=== PATIENT | female | born 1950 | race Two or more races ===

== ENCOUNTER 2020-04-07 06:47 | Outpatient (REF) | payer MEDICARE, SELFPAY | END 2020-04-07 06:48 | disposition home or self-care (01) | LOC: HO.LAB 06:47 | PROVIDERS: Visit Provider Internal Medicine | DX: Z20.822 Contact with and (suspected) exposure to COVID-19 (principal) | CPT/HCPCS: 36415; C9803; U0003; U0005 ==

== ENCOUNTER 2020-04-18 21:00 | Emergency (ER) | payer MEDICARE, SELFPAY ==
[2020-04-18] VITALS (7 sets, daily range): BP systolic 158–201; BP diastolic 89–118; PULSE 108–120; RESP 17–18; TEMP 36.8; O2SAT 94–99; BMI 31.3
--- NOTE | ~2020-04-18 | XR_ITS ---
EXAMINATION: PORTABLE CHEST 1 VIEW CLINICAL INFORMATION: chest pain . COMPARISON: 07/23/2018. TECHNIQUE: Portable frontal view of the chest was obtained. FINDINGS: The lungs are well expanded. Chronic appearing reticular markings but no superimposed focal infiltrate, effusion, edema, or pneumothorax. Cardiac and mediastinal silhouettes are within normal limits for technique. No acute bony abnormality seen. XR/XR chest 1V IMPRESSION: No evidence of acute disease compared to 07/23/2018.
--- NOTE | 2020-04-18 21:06 | ECG_ITS ---
Test Reason : CP Blood Pressure : / mmHG Vent. Rate : 124 BPM Atrial Rate : 144 BPM P-R Int : 000 ms QRS Dur : 076 ms QT Int : 266 ms P-R-T Axes : 000 000 -03 degrees QTc Int : 382 ms Atrial fibrillation with rapid ventricular response Minimal voltage criteria for LVH, may be normal variant Nonspecific ST abnormality Abnormal ECG When compared with ECG of 23-JUL-2018 19:47, Atrial fibrillation has replaced Sinus rhythm Vent. rate has increased BY 43 BPM Referred By: Chelita Schaffer Electronically Signed By:STEVEN RODRIGUEZ MD
--- NOTE | 2020-04-18 21:24 | ED.CHESTPAIN ---
HPI - Chest Pain General Chief Complaint: Chest Pain Stated Complaint: chest pain, covid exposure Time Seen by Provider: 04/18/20 21:07 Source: patient Mode of arrival: ambulatory History of Present Illness HPI narrative: This is a 70-year-old female with history of hypertension who presents with 2 hours of chest tightness/squeezing, substernal, that started approximately 2 hours ago, and is not associated with radiation/shortness of breath/nausea/dizziness, but patient does describe a mild headache. Of note, her family with whom she lives has been diagnosed with COVID-19. Otherwise, patient denies any GI symptoms or symptoms. Related Data Previous Rx's Medication Instructions Recorded metoprolol succinate 50 mg PO DAILY 30 Days #30 tab 04/19/20 rivaroxaban [Xarelto] 20 mg PO DAILY 30 Days #30 tab 04/19/20 Allergies Allergy/AdvReac Type Severity Reaction Status Date / Time amoxicillin [AMOXICILLIN] Allergy Intermediate RASH Verified 04/18/20 21:12 egg [Egg] Allergy Mild SWELLING Verified 04/18/20 21:12 OF FACE, ITCHY eggplant [EGGPLANT] Allergy Mild PUFFY Verified 04/18/20 21:12 FACE, ITCHY milk [MILK] Allergy Mild SWELLING Verified 04/18/20 21:12 OF FACE, ITCHY tomato [Tomato] Allergy Mild SWELLING Verified 04/18/20 21:12 avocado [AVOCADO] Allergy Unknown SWEELING, Verified 04/18/20 21:12 ITCHY nut - unspecified [nut] Allergy Unknown SWELLING Verified 04/18/20 21:12 OF FACE,ITCHY Seafood Allergy Unknown SWELLING Uncoded 11/22/19 15:10 Review of Systems Review of Systems: Pertinent positives and negatives as stated in HPI 10 point review of systems otherwise negative. PMFSH Past Medical History Source: nursing notes reviewed Medical History Hypertension Social History Social History Advance Directives: No Advance Directives Information Provided: No Physical Exam Vital Signs: Vital Signs: Last Vital Signs Temp 98.2 F 04/18/20 21:13 Pulse 111 H 04/19/20 01:10 Resp 16 04/19/20 01:08 BP 167/97 H 04/19/20 01:10 Pulse Ox 96 04/19/20 01:08 Body Mass Index 31.3 VITAL SIGNS: Reviewed. GENERAL: Well developed, well nourished, in no acute distress. HEAD: Normocephalic/atraumatic, EYES: PERRLA, EOMI EARS: Ext canals without abnormality NOSE: Nares patent bilateral OROPHARYNX: no oral lesions noted, posterior pharynx clear NECK: Supple, no adenopathy LUNGS: Normal breath sounds. No adventitious sounds or accessory muscle use. SpO2<94> CARDIOVASCULAR: Regular rate and rhythm without noted murmurs, no JVD or lower extremity edema. ABDOMEN: Soft, non-tender, non-distended with bowel sounds. NEUROLOGIC: Alert and oriented x 4. Course Course Course Narrative: This is a 70-year-old female with history and clinical presentation of hypertension that is associated with chest tightness and EKG findings consistent with new atrial fibrillation. -aspirin, labs, EKG, chest x-ray, D-dimer, COVID testing, UA, Lopressor 2.5 mg Review of all investigations that acute findings to explain patient's new onset atrial fibrillation. D-dimer was negative and patient remained in atrial fibrillation despite receiving a total of 10 mg of Lopressor IV, however her blood pressure did respond and her heart rate did decrease to 90s-low 100s. On re-evaluation patient endorses that her discomfort has significantly improved. CHADS-Vasc:3. This case was discussed with Cardiology, Dr Dahl, who recommends increasing her lopressor to 50mg daily, starting Xarelto, and calling office on Tuesday for appointment. Patient was informed of all plans and results. MDM - Chest Pain Lab Data Result diagrams: 04/18/20 21:33 04/18/20 21:33 Labs: Lab Results 04/18/20 04/18/20 04/18/20 Range/Units 21:33 21:33 21:33 WBC 9.4 (4.8-10.8) X10*3/uL RBC 4.78 (4.20-5.50) X10*6/uL Hgb 13.2 (12.0-16.0) g/dl Hct 40.6 (37-47) % MCV 84.9 (80-98) fL MCH 27.6 (27.0-33.0) pg MCHC 32.5 (31.0-35.0) g/dl RDW 13.5 (11.0-16.0) % Plt Count 285 (160-400) X10*3/uL MPV 9.5 (9.4-12.3) fL Immature Gran % (Auto) 0.2 (0.0-0.4) % Neut % (Auto) 73.7 H (45-73) % Lymph % (Auto) 20.3 (20-40) % [place]cl[place] % (Auto) 4.7 (2-11) % Eos % (Auto) 0.7 (0-4) % Baso % (Auto) 0.4 (0-2) % Lymph # (Auto) 1.9 (1.2-4.9) X10*3/uL [place]cl[place] # (Auto) 0.4 (0.1-1.2) X10*3/uL Eos # (Auto) 0.1 (0.0-0.4) X10*3/uL Baso # (Auto) 0.0 (0.0-0.2) X10*3/uL Abs Immat Gran (auto) 0.02 (0.00-0.03) X10*3/uL Absolute Neuts (auto) 7.0 (2.0-8.3) X10*3/uL Absolute Nucleated RBC 0.000 (0.0-0.012) X10*3/uL Nucleated RBC % (auto) 0.0 (0.0-0.2) /100WBC D-Dimer NG/ML Hold Blue Top SEE NOTE Sodium 141 (135-145) mmol/L Potassium 4.1 (3.3-5.1) mmol/L Chloride 105 (96-108) mmol/L Carbon Dioxide 25 (22-29) mmol/L Anion Gap 15 (12-20) BUN 23 H (9-16) mg/dL Creatinine 0.81 (0.5-1.4) mg/dL Estim Creat Clear Calc 54.3 Estimated GFR > 60 Random Glucose 205 H (60-115) mg/dL Calcium 9.4 (8.4-10.2) mg/dL Total Bilirubin 0.3 (0.0-1.0) mg/dL AST 23 (5-31) U/L ALT 19 (0-31) U/L Alkaline Phosphatase 89 (39-117) U/L Troponin I High Sens (<3.5-17.0) ng/L Total Protein 7.4 (6.5-8.0) g/dL Albumin 4.2 (3.5-5.0) g/dL Lipase (8-78) U/L Urine Color Urine Appearance Urine pH (5.0-8.0) Ur Specific [place] (1.005-1.025) Urine Protein (NEG-TRACE) MG/DL Urine Glucose (UA) (NEG) MG/DL Urine Ketones (NEG) MG/DL Urine Blood (NEG) Urine Nitrite (NEG) Ur Leukocyte Esterase (NEG) Urine RBC (0) /HPF Urine WBC (0-4) /HPF Ur Squamous Epith Cells /LPF Urine Bacteria /LPF Hyaline Casts /LPF Urine Yeast /HPF Coronavirus (PCR) (Negative) Influenza Type A (PCR) (Negative) Influenza Type B (PCR) (Negative) RSV RNA Qual (PCR) (Negative) 04/18/20 04/18/20 04/18/20 Range/Units 21:33 21:33 21:33 WBC (4.8-10.8) X10*3/uL RBC (4.20-5.50) X10*6/uL Hgb (12.0-16.0) g/dl Hct (37-47) % MCV (80-98) fL MCH (27.0-33.0) pg MCHC (31.0-35.0) g/dl RDW (11.0-16.0) % Plt Count (160-400) X10*3/uL MPV (9.4-12.3) fL Immature Gran % (Auto) (0.0-0.4) % Neut % (Auto) (45-73) % Lymph % (Auto) (20-40) % [place]clain % (Auto) (2-11) % Eos % (Auto) (0-4) % Baso % (Auto) (0-2) % Lymph # (Auto) (1.2-4.9) X10*3/uL [place] # (Auto) (0.1-1.2) X10*3/uL Eos # (Auto) (0.0-0.4) X10*3/uL Baso # (Auto) (0.0-0.2) X10*3/uL Abs Immat Gran (auto) (0.00-0.03) X10*3/uL Absolute Neuts (auto) (2.0-8.3) X10*3/uL Absolute Nucleated RBC (0.0-0.012) X10*3/uL Nucleated RBC % (auto) (0.0-0.2) /100WBC D-Dimer NG/ML Hold Blue Top Sodium (135-145) mmol/L Potassium (3.3-5.1) mmol/L Chloride (96-108) mmol/L Carbon Dioxide (22-29) mmol/L Anion Gap (12-20) BUN (9-16) mg/dL Creatinine (0.5-1.4) mg/dL Estim Creat Clear Calc Estimated GFR Random Glucose (60-115) mg/dL Calcium (8.4-10.2) mg/dL Total Bilirubin (0.0-1.0) mg/dL AST (5-31) U/L ALT (0-31) U/L Alkaline Phosphatase (39-117) U/L Troponin I High Sens < 3.5 (<3.5-17.0) ng/L Total Protein (6.5-8.0) g/dL Albumin (3.5-5.0) g/dL Lipase 37 (8-78) U/L Urine Color Urine Appearance Urine pH (5.0-8.0) Ur Specific [place] (1.005-1.025) Urine Protein (NEG-TRACE) MG/DL Urine Glucose (UA) (NEG) MG/DL Urine Ketones (NEG) MG/DL Urine Blood (NEG) Urine Nitrite (NEG) Ur Leukocyte Esterase (NEG) Urine RBC (0) /HPF Urine WBC (0-4) /HPF Ur Squamous Epith Cells /LPF Urine Bacteria /LPF Hyaline Casts /LPF Urine Yeast /HPF Coronavirus (PCR) NEGATIVE (Negative) Influenza Type A (PCR) NEGATIVE (Negative) Influenza Type B (PCR) NEGATIVE (Negative) RSV RNA Qual (PCR) NEGATIVE (Negative) 04/18/20 04/18/20 04/19/20 Range/Units 22:15 22:17 00:36 WBC (4.8-10.8) X10*3/uL RBC (4.20-5.50) X10*6/uL Hgb (12.0-16.0) g/dl Hct (37-47) % MCV (80-98) fL MCH (27.0-33.0) pg MCHC (31.0-35.0) g/dl RDW (11.0-16.0) % Plt Count (160-400) X10*3/uL MPV (9.4-12.3) fL Immature Gran % (Auto) (0.0-0.4) % Neut % (Auto) (45-73) % Lymph % (Auto) (20-40) % [place]cl[place] % (Auto) (2-11) % Eos % (Auto) (0-4) % Baso % (Auto) (0-2) % Lymph # (Auto) (1.2-4.9) X10*3/uL [place] # (Auto) (0.1-1.2) X10*3/uL Eos # (Auto) (0.0-0.4) X10*3/uL Baso # (Auto) (0.0-0.2) X10*3/uL Abs Immat Gran (auto) (0.00-0.03) X10*3/uL Absolute Neuts (auto) (2.0-8.3) X10*3/uL Absolute Nucleated RBC (0.0-0.012) X10*3/uL Nucleated RBC % (auto) (0.0-0.2) /100WBC D-Dimer < 200 NG/ML Hold Blue Top Sodium (135-145) mmol/L Potassium (3.3-5.1) mmol/L Chloride (96-108) mmol/L Carbon Dioxide (22-29) mmol/L Anion Gap (12-20) BUN (9-16) mg/dL Creatinine (0.5-1.4) mg/dL Estim Creat Clear Calc Estimated GFR Random Glucose (60-115) mg/dL Calcium (8.4-10.2) mg/dL Total Bilirubin (0.0-1.0) mg/dL AST (5-31) U/L ALT (0-31) U/L Alkaline Phosphatase (39-117) U/L Troponin I High Sens 4.0 (<3.5-17.0) ng/L Total Protein (6.5-8.0) g/dL Albumin (3.5-5.0) g/dL Lipase (8-78) U/L Urine Color YELLOW Urine Appearance CLEAR Urine pH 6.0 (5.0-8.0) Ur Specific [place] 1.025 (1.005-1.025) Urine Protein 2+ H (NEG-TRACE) MG/DL Urine Glucose (UA) NEG (NEG) MG/DL Urine Ketones NEG (NEG) MG/DL Urine Blood 1+ H (NEG) Urine Nitrite NEG (NEG) Ur Leukocyte Esterase NEG (NEG) Urine RBC 1-4 (0) /HPF Urine WBC 5-9 H (0-4) /HPF Ur Squamous Epith Cells TRACE /LPF Urine Bacteria TRACE /LPF Hyaline Casts 1-4 /LPF Urine Yeast 1+ /HPF Coronavirus (PCR) (Negative) Influenza Type A (PCR) (Negative) Influenza Type B (PCR) (Negative) RSV RNA Qual (PCR) (Negative) ECG Data ECG #1: Attestation: I personally reviewed and interpreted this ECG as follows: Prior ECG tracings: available for review Interpretation: Atrial fibrillation (new, HR-124, no evidence of acute ischemia, QRS/QTC are within normal limits. Discharge Plan Discharge Clinical Impression: Atypical chest pain, Atrial fibrillation, new onset Patient Disposition: Home, Self-Care Instructions: A-fib (Atrial Fibrillation) (ED), Chest Pain (ED) Additional Instructions: You have been diagnosed with new onset atrial fibrillation, your COVID-19 testing is negative today. 1. Increase your current metoprolol 25 mg (1 tablet) to 50 mg (2 tablets) daily. You have been provided with a new prescription for the 50 mg tablet, however you may use your current pills until they are completed (2 tablets= 50 mg daily). 2. You have been started on a blood thinner called Xarelto which is prescribed as a daily medication for your new diagnosis of atrial fibrillation. 3. You should call the cardiology office (you have been provided a referral below) Tuesday morning. Your case was discussed with nnps Dr. Dahl. Do not hesitate to return to the emergency department should you experience any acute worsening of your symptoms. Prescriptions: New Xarelto 20 mg tablet 20 mg PO DAILY 30 Days Qty: 30 RF: 0 metoprolol succinate 50 mg tablet extended release 24 hr 50 mg PO DAILY 30 Days Qty: 30 RF: 0 Referrals: Benito Munroe MD [Primary Care Provider] - 2 days (Re-evaluation and management for new onset atrial fibrillation. Referral to Cardiology has been provided to your patient.) Gabe Dahl MD [Physician] - 2 days (New onset atrial fibrillation, patient started on Xarelto.) Print Language: [place] Islander
[2020-04-18 21:39] LABS: MANUAL DIFF FLAG NO
[2020-04-18 21:47] LABS: Basophils Percent Auto 0.4 % (0-2); Eosinophils Absolute Auto 0.1 X10*3/uL (0.0-0.4); Eosinophils Percent Auto 0.7 % (0-4); Hematocrit 40.6 % (37-47); Hemoglobin 13.2 g/dl (12.0-16.0); Imm Gran Abs Auto 0.02 X10*3/uL (0.00-0.03); Imm Gran Pct Auto 0.2 % (0.0-0.4); Lymphocytes Absolute Auto 1.9 X10*3/uL (1.2-4.9); Lymphocytes Percent Auto 20.3 % (20-40); Mean Corpuscular HGB Conc 32.5 g/dl (31.0-35.0); Mean Corpuscular Hemoglobin 27.6 pg (27.0-33.0); Mean Corpuscular Volume 84.9 fL (80-98); Mean Platelet Volume 9.5 fL (9.4-12.3); Monocytes Absolute Auto 0.4 X10*3/uL (0.1-1.2); Monocytes Percent Auto 4.7 % (2-11); Neutrophils Percent Auto 73.7 % (45-73); Platelet Count 285 X10*3/uL (160-400); Red Blood Count 4.78 X10*6/uL (4.20-5.50); Red Cell Distribution Width 13.5 % (11.0-16.0); White Blood Count 9.4 X10*3/uL (4.8-10.8)
[2020-04-18] MEDS: Metoprolol Tartrate 5 MG/5 ML VIAL 2.5 MG IVPUSH ×2 (22:03→22:55)
[2020-04-18] MEDS: Aspirin 81 MG TAB.CHEW 324 MG PO (22:03)
[2020-04-18 22:09] LABS: Troponin-I High Sensitivity < 3.5 ng/L (<3.5-17.0)
[2020-04-18 22:11] LABS: Alanine Aminotransferase 19 U/L (0-31); Albumin Level 4.2 g/dL (3.5-5.0); Alkaline Phosphatase 89 U/L (39-117); Anion Gap 15 (12-20); Aspartate Amino Transferase 23 U/L (5-31); Bilirubin Total 0.3 mg/dL (0.0-1.0); Blood Urea Nitrogen 23 mg/dL (9-16); Calcium 9.4 mg/dL (8.4-10.2); Carbon Dioxide 25 mmol/L (22-29); Chloride 105 mmol/L (96-108); Creatinine Clr Calc Pharmacy 54.3; Estimated Glomerular Filt Rate > 60; Glucose Random 205 mg/dL (60-115); Potassium 4.1 mmol/L (3.3-5.1); Sodium 141 mmol/L (135-145); Total Protein 7.4 g/dL (6.5-8.0)
[2020-04-18 22:16] LABS: Lipase 37 U/L (8-78)
[2020-04-18 22:27] LABS: Influenza A PCR NEGATIVE (Negative); Influenza B PCR NEGATIVE (Negative); Resp Syncy Virus RNA Qual PCR NEGATIVE (Negative); SARS COV2 PCR INHOUSE NEGATIVE (Negative)
[2020-04-18 22:36] LABS: Glucose Urine UA NEG (NEG); Leukocyte Esterase Urine NEG (NEG); Nitrite Urine NEG (NEG); Specific Gravity - Urine 1.025 (1.005-1.025); Urine Blood 1+ (NEG); Urine Ketones NEG (NEG); Urine Protein 2+ MG/DL (NEG-TRACE)
[2020-04-18 22:38] LABS: Appearance Urine CLEAR; Color Urine YELLOW
[2020-04-18 22:52] LABS: UACC CULT YES
[2020-04-18 22:53] LABS: Bacteria Urine TRACE /LPF; Squamous Epithelial Cell Urine TRACE /LPF
[2020-04-18 23:15] LABS: D Dimer < 200 NG/ML
--- NOTE | 2020-04-18 23:55 | PC.NURSE ---
PT AMBULATORY A FEW STEPS TO BATHROOM, BED BROUGHT CLOSE TO BATHROOM DOOR. PT AMBULATORY WITH STEADY GAIT. PT ABLE TO DRINK SODA, NO COMPLAINT OF NAUSEA. REPORTS DECREASE IN CHEST PRESSURE.
--- NOTE | 2020-04-19 | ECG_ITS ---
Test Reason : AFIB Blood Pressure : / mmHG Vent. Rate : 100 BPM Atrial Rate : 057 BPM P-R Int : 000 ms QRS Dur : 070 ms QT Int : 326 ms P-R-T Axes : 000 005 015 degrees QTc Int : 420 ms Atrial fibrillation Abnormal ECG When compared with ECG of 18-APR-2020 21:04, No significant change was found Referred By: Chelita Schaffer Electronically Signed By:STEVEN RODRIGUEZ MD
[2020-04-19 01:08] VITALS: BP 167/97; PULSE 112; RESP 16; O2SAT 96
[2020-04-19 01:10] VITALS: BP 167/97; PULSE 111
[2020-04-19] MEDS: Metoprolol Tartrate 5 MG/5 ML VIAL IVPUSH (01:10)
[2020-04-19] MEDS: Rivaroxaban 20 MG TABLET PO (02:56)
== END 2020-04-19 03:07 | disposition home or self-care (01) ==
PROVIDERS: Emergency Provider Student in an Organized Health Care Education/Training Program; PCP Internal Medicine
DX: R07.9 Chest pain, unspecified (principal); I48.91 Unspecified atrial fibrillation; Z20.822 Contact with and (suspected) exposure to COVID-19; I10 Essential (primary) hypertension
CPT/HCPCS: 0241U; 36415; 71045; 80053; 81001; 83690; 84484; 85025; 85379; 87086; 87088; 87186; 93005; 96374; 96376; 99284

== ENCOUNTER → 2020-04-25 09:58 | Outpatient (REF) | payer MEDICARE, SELFPAY ==
--- NOTE | 2020-04-25 10:03 | CA_ITS ---
Transthoracic Echocardiogram Patient (Last, First, Middle): Miladis Reddy, Gender: Female Date of : 1950 Age: 70 Procedure Date: 04/25/2020 Procedure Type: Transthoracic Echocardiogram Location: OP Height: 147.32 cm Weight: 74.39 kg BSA: 1.67 m2 Heart Rate: bpm BP: 140 / 90 mmHg Client Server Programmer: RENAY Referring MD: Gabe Dahl MD Dry House Attendant: Gabe Dahl MD Symptoms: I48.91 - Unspecified atrial fibrillation Study Quality: Good ECG Rhythm: Sinus Conclusions: - 1. Normal LV systolic function 2. Mild biatrial enlargement 3. Icoo-vi-pougcvut mitral regurgitation 4. Normal RV systolic pressure 5. No pericardial effusion Findings Left Ventricle Normal left ventricular size, thickness, and systolic function. The visually estimated ejection fraction is between 55-60%. Diastolic function is indeterminate on the basis of available data. Right Ventricle Normal right ventricular cavity size and systolic function. Atria Mild biatrial enlargement. There is no evidence of interatrial shunt. Aortic Valve There is mild calcification of the aortic valve. There is no aortic valve stenosis. There is no aortic valve regurgitation. Mitral Valve There is mild anterior and posterior mitral leaflet thickening. There is mild mitral annular calcification. There is mild to moderate mitral valve regurgitation. There is no mitral valve stenosis. Pulmonic Valve The pulmonic valve was not well visualized. Tricuspid Valve Likely normal tricuspid valve structure and function. There is mild tricuspid valve regurgitation. The right ventricular systolic pressure is normal. Normal right atrial pressure. There is no evidence of pulmonary hypertension. Great Vessels All visible segments of the aorta are normal in size. The pulmonary artery was not well visualized. Venous The inferior vena cava is normal in size and collapses greater than 50% with inspiration. Pericardium/Pleural There is no evidence of pericardial effusion. Prior Study Comparison No previous study in the last 5 years for comparison Measurements 2D Linear Measurements IVSd: 0.96 0.6-0.9/0.6-1.0 cm LVIDd: 3.86 3.9-5.3/4.2-5.9 cm LVIDd Index: 2.31 2.4-3.2/2.2-3.1 cm/m2 LVIDs: 2.80 2.0-3.6 cm LVPWd: 0.97 0.7-1.1 cm Ao Root: 3.00 2.1-3.5 cm LA Diam: 4.20 2.7-3.8/3.0-4.0 cm LAIDs Index: 2.51 1.5-2.3 cm/m2 LV Mass: 142.58 67-162/88-224 g LV Mass Index: 85.38 43-95/49-115 g/m2 LVOT Diam: 2.00 3.0+(-)1.3 cm Mitral Valve MV Pk E: 1.05 MV PK A: 0.43 MV Decel Time: 195.00 E/A: 2.50 E'Lateral: 8.38 E'Medial: 5.66 E/E' Med: 18.60 E/E' Lat: 12.50 PHT: 57.00 MVA PHT: 3.86 Decel Lamar: 5.40 Aortic Valve AoV Pk Froylan: 1.07 AoV Mn Froylan: 0.72 AoV VTI: 0.20 AoV Pk Grad: 5.00 Aov Mn Grad: 2.00 CRISTY Cont.VTI: 1.87 LVOT LVOT Pk Froylan: 0.73 LVOT Mn Froylan: 0.49 LVOT VTI: 0.12 LVOT Pk Grad: 2.00 LVOT Mn Grad: 1.00 LVOT Diam: 2.00 LVOT Area: 3.14 Diastolic Function MV Pk E: 1.05 MV Pk A: 0.43 E/A: 2.50 E'Medial: 5.66 E/E' Med: 18.60 E' Laterial: 8.38 E/E' Lat: 12.50 Tricuspid Valve TR Pk Froylan: 2.81 TR Pk Grad: 32.00 RA Press: 3.00 RVSP: 35.00 Great Vessels Aorta Ao Root-2D: 3.00 2.0-3.7 cm Ao Asc: 3.20 2.1-3.4 cm Ao Arch: 2.70 Updated in Other Vendor System with Status of Final Gabe Dahl MD electronically signed on 04/25/2020 3:58:47 PM with status of Final
== END ==
LOC: HO.CARD 09:58
PROVIDERS: Visit Provider Internal Medicine Cardiovascular Disease
DX: R07.89 Other chest pain (principal); I48.91 Unspecified atrial fibrillation
CPT/HCPCS: 93306

== ENCOUNTER → 2020-05-22 12:35 | Outpatient (REF) | payer MEDICARE, SELFPAY ==
--- NOTE | 2020-05-22 12:39 | ECG_ITS ---
Hook-up date: 2020-05-22 13:26:00 Duration: 25:31:00 Test Indications: UNSPEC. AFIB Medications: 149310 QRS complexes 20 Ventricular ectopics which represent <1 % of total QRS comp. * Supraventricular ectopics which represent % of total QRS comp. * Paced QRS complexs which represent % of total QRS comp. VENTRICULAR ECTOPY 20 Isolated 0 Bigeminal Cycles 0 Couplets 0 Runs 0 Beats in Runs * Beats LONGEST at * BPM at :: -- * Beats FASTEST at * BPM at :: -- SUPRAVENTRICULAR ECTOPY * Isolated * Couplets * Runs * Beats in Runs * Beats LONGEST at * BPM at :: -- * Beats FASTEST at * BPM at :: -- HEART RATES 53 MIN at 16:17:33 2020-05-22 90 AVG 142 MAX at 11:36:30 2020-05-23 LONGEST RR 1.7040 secs at 16:17:32 2020-05-22 S-T LEVELS Channel 1 - 128 mm at 13:26:00 2020-05-22 - 128 mm at 13:26:00 2020-05-22 Channel 2 - 128 mm at 13:26:00 2020-05-22 - 128 mm at 13:26:00 2020-05-22 Channel 3 - 128 mm at 03:24:51 -- - 128 mm at 03:24:51 Basic rhythm Atrial fibrillation Rate appears to be adequatley controlled. No long pause or profound bradycardia Rare Premature ventricular complexes No diary submitted Referred By: Gabe Dahl Overread By: GABE DAHL MD
== END ==
LOC: HO.CARD 12:35
PROVIDERS: Visit Provider Internal Medicine Cardiovascular Disease
DX: R07.89 Other chest pain (principal); I48.91 Unspecified atrial fibrillation
CPT/HCPCS: 93225; 93226

== ENCOUNTER → 2020-06-04 10:25 | Outpatient (BNVA) | payer MEDICARE, SELFPAY | PROVIDERS: Visit Provider Nurse Practitioner Family | DX: I10 Essential (primary) hypertension (principal); R07.89 Other chest pain | CPT/HCPCS: 99202 ==

== ENCOUNTER → 2020-06-11 08:04 | Outpatient (REF) | payer MEDICARE, SELFPAY ==
--- NOTE | ~2020-06-11 | NM_ITS ---
Lexiscan Myocardial perfusion study Indication: Atrial fibrillation, assess for coronary disease and ischemia Technique: The patient was brought in for a Lexiscan perfusion study on 06/11/2020 and was injected 0.4 mg of Lexiscan intravenously. Within a minute of this injection 30 mCi of sestamibi was given intravenously. Images were obtained using the SPECT gamma camera interlaced with the gating device. Images were obtained in supine position. Resting perfusion study was performed on 06/12/2020. Patient was administered 30 mCi of sestamibi intravenously at rest. Images were then obtained in supine position. Total DLP 76mGy-cm. Images were processed with the software and compared side to side in short axis, horizontal long axis and vertical long axis views. Findings: Raw acquisition was reviewed. The stress perfusion study showed no significant perfusion abnormality. Both uncorrected as well as CT attenuation corrected images were reviewed. The gated study shows normal LV systolic function with calculated LVEF of > 70%. LV cavity is normal in size. The gated study shows normal wall thickening and contraction of segments. Resting study shows no significant perfusion abnormality. Gating at rest reveals normal wall motion with ejection fraction at > 70%. The findings are consistent with no reversible or fixed perfusion defects. NM/NM stephanie perf SPECT rest & str Impression: 1. Myocardial perfusion imaging study shows normal myocardial perfusion. 2. Gated LVEF is > 70%. 3. Transient ischemic dilatation not present. EKG component of the test reported separately.
--- NOTE | 2020-06-11 08:08 | CA_ITS ---
Acquisition Time: 2020-06-12 08:16:06 Total Exercise Time: 00:02:00 Test Indications: Abnormal ECG Medications: METOPROLOL XARELTO Protocol: LEXISCAN Max HR: 136 BPM 91% of Pred: 149 BPM Max BP: 140/072 mmHG Max Work Load: 1.0 METS Pharmacological stress test with Lexiscan injection, while sitting and kicking her legs, without anginal symptoms, without arrythmia, with normotensive response to injection, with nondiagnostic EKG for ischemia. In recovery she had elevated afib rates and was treated with Aminophylline 75mg IVP to reverse Lexiscan with improvement in heart rate. Nuclear images pending. Test reviewed with Dr Dahl. Referred By: Rocio Grossman Overread By: ROCIO GROSSMAN
== END ==
LOC: HO.CARD 08:04
PROVIDERS: Visit Provider Nurse Practitioner Family
DX: R07.89 Other chest pain (principal); I10 Essential (primary) hypertension; I48.91 Unspecified atrial fibrillation
CPT/HCPCS: 78452; 93017; A9500; J0280; J2785

== ENCOUNTER → 2020-07-07 10:11 | Outpatient (BNVA) | payer MEDICARE, SELFPAY | PROVIDERS: Referring Provider Internal Medicine; Visit Provider Nurse Practitioner Family | DX: I48.91 Unspecified atrial fibrillation (principal); I10 Essential (primary) hypertension; R07.89 Other chest pain | CPT/HCPCS: 99212 ==

== ENCOUNTER 2020-09-05 08:16 | Outpatient (REF) | payer MEDICARE, SELFPAY | END 2020-09-05 08:17 | disposition home or self-care (01) | LOC: HO.LAB 08:16 | PROVIDERS: PCP Internal Medicine; Visit Provider Internal Medicine | DX: Z20.822 Contact with and (suspected) exposure to COVID-19 (principal) | CPT/HCPCS: C9803; U0003; U0005 ==

== ENCOUNTER → 2020-10-14 13:49 | Outpatient (BNVA) | payer MEDICARE, SELFPAY | PROVIDERS: PCP Internal Medicine; Referring Provider Internal Medicine; Visit Provider Internal Medicine Cardiovascular Disease | DX: I48.91 Unspecified atrial fibrillation (principal); Z88.1 Allergy status to other antibiotic agents; Z91.012 Allergy to eggs; Z91.011 Allergy to milk products; Z91.018 Allergy to other foods; Z91.013 Allergy to seafood | CPT/HCPCS: 99212 ==

== ENCOUNTER → 2020-10-24 07:52 | Outpatient (BNVA) | payer MEDICARE, SELFPAY | PROVIDERS: PCP Internal Medicine; Visit Provider Internal Medicine Cardiovascular Disease | DX: I48.91 Unspecified atrial fibrillation (principal) | CPT/HCPCS: 99212 ==

== ENCOUNTER 2020-11-12 10:49 | Day surgery (SDC) | payer MEDICARE, SELFPAY ==
--- NOTE | 2020-11-11 10:42 | P.CONAN_ITS ---
Documented by User: Brenda Christine NP 11/11/20 10:46 HPI - Anesthesia Eval Consult details Narrative: 70yo F for Cardioversion Xarelto PMFSH Active Problems Active Problems: All Active Problems (Updated 07/07/20 @ 11:00 by LYNDON JohnsonC) Afib (Acute) Chest discomfort (Acute) Hypertension (Acute) Past Medical History Medical History Afib Hypertension Family History Family History Father No problems noted. Mother No problems noted. Surgical History Surgical History History of sinus surgery Social History Social History Patient Tobacco Use Status: Never used Tobacco Second Hand Smoke Exposure: No Use of substances other than those prescribed or required for medical reasons: No Are you DNR?: No Advance Directives: No Advance Directives Information Provided: Yes Advance Directives on File: No Meds Allergies Allergy/AdvReac Type Severity Reaction Status Date / Time amoxicillin [AMOXICILLIN] Allergy Intermediate RASH Verified 10/24/20 08:15 egg [Egg] Allergy Mild SWELLING Verified 10/24/20 08:15 OF FACE, ITCHY eggplant [EGGPLANT] Allergy Mild PUFFY Verified 10/24/20 08:15 FACE, ITCHY milk [MILK] Allergy Mild SWELLING Verified 10/24/20 08:15 OF FACE, ITCHY tomato [Tomato] Allergy Mild SWELLING Verified 10/24/20 08:15 avocado [AVOCADO] Allergy Unknown SWEELING, Verified 10/24/20 08:15 ITCHY nut - unspecified [nut] Allergy Unknown SWELLING Verified 10/24/20 08:15 OF FACE,ITCHY Seafood Allergy Unknown SWELLING Uncoded 10/24/20 08:15 Home Medications Medication Instructions Recorded Confirmed Last Taken Type alprazolam 0.25 mg tablet 0.25 mg PO 10/14/20 10/14/20 Unknown History lisinopril 5 mg tablet 5 mg PO DAILY 10/14/20 10/14/20 Unknown History Exam Exam Date and Time: November 11, 2020 1042 Narrative Narrative: EKG 04/2020 Vent. Rate : 100 BPM ? ? Atrial Rate : 057 BPM ?? P-R Int : 000 ms? QRS Dur : 070 ms ? ? QT Int : 326 ms ? ? ? P-R-T Axes : 000 005 015 degrees ?? QTc Int : 420 ms ? Atrial fibrillation Abnormal ECG When compared with ECG of 18-APR-2020 21:04, No significant change was found ECHO 04/2020 Conclusions: -? 1. Normal LV systolic function? 2. Mild biatrial enlargement ? 3. Luhc-[id number] mitral regurgitation ? 4. Normal RV systolic pressure ? 5. No pericardial effusion ? ?? Holter 05/2020 Basic rhythm Atrial fibrillation Rate appears to be adequatley controlled. No long pause or profound bradycardia Rare Premature ventricular complexes No diary submitted NM stephanie perf SPECT rest & str 06/2020 Impression: ? 1.? Myocardial perfusion imaging study shows normal myocardial perfusion. 2.? Gated LVEF is > 70%. 3. Transient ischemic dilatation not present. ? EKG component of the test nondiagnostic. Assessment and Plan Assessment Anesthesia Assessment: Chart Reviewed Documented by User: Mauricio Kaminski MD 11/12/20 13:18 [facility] Past Medical History Medical History Afib Hypertension Family History Family History Father No problems noted. Mother No problems noted. Family history of problems with anesthesia: No Surgical History Surgical History History of sinus surgery History of Problems with Anesthesia: No Social History Social History Patient Tobacco Use Status: Never used Tobacco Second Hand Smoke Exposure: No Use of substances other than those prescribed or required for medical reasons: No Are you DNR?: No Advance Directives: No Advance Directives Information Provided: Yes Advance Directives on File: No Meds Allergies Allergy/AdvReac Type Severity Reaction Status Date / Time amoxicillin [AMOXICILLIN] Allergy Intermediate RASH Verified 10/24/20 08:15 egg [Egg] Allergy Mild SWELLING Verified 10/24/20 08:15 OF FACE, ITCHY eggplant [EGGPLANT] Allergy Mild PUFFY Verified 10/24/20 08:15 FACE, ITCHY milk [MILK] Allergy Mild SWELLING Verified 10/24/20 08:15 OF FACE, ITCHY tomato [Tomato] Allergy Mild SWELLING Verified 10/24/20 08:15 avocado [AVOCADO] Allergy Unknown SWEELING, Verified 10/24/20 08:15 ITCHY nut - unspecified [nut] Allergy Unknown SWELLING Verified 10/24/20 08:15 OF FACE,ITCHY Seafood Allergy Unknown SWELLING Uncoded 10/24/20 08:15 Home Medications Medication Instructions Recorded Confirmed Last Taken Type alprazolam 0.25 mg tablet 0.25 mg PO 10/14/20 10/14/20 Unknown History lisinopril 5 mg tablet 5 mg PO DAILY 10/14/20 10/14/20 Unknown History Exam Airway Mallampati Class: II TM Dist: >3cm Neck ROM: Full Loose/Missing/Broken Teeth: No Heart: irreg irregular S1S2 Lungs: CTA b/l Assessment and Plan Assessment Anesthesia Assessment: Anesthesia Plan Discussed and PAT Visit Final Anesthetic Review Family History of Problems with Anesthesia: No History of Problems with Anesthesia: No NPO: Yes ASA Class: III Final Preanesthetic Review: No Changes in Pt Med Stat, Meds/Allgs Chart R eviewed, Consent Obtained/Reviewed and Anes Risks/Benef Reviewed Patient Risk: Intermediate Procedure Risk: Low Assessment/Block/Sedation in SS: Assess/Block/Sedation-SS Anesthetic Plan Anesthetic Plan: GA and Agree w/ Assess. and Plan Disposition: Standard PACU
[2020-11-12 11:35] VITALS: BP 175/89; PULSE 104; RESP 18; TEMP 36.2; O2SAT 97; BMI 33.0
[2020-11-12] MEDS: Lactated Ringers 1,000 ML 100 ML IVCONT (11:39)
--- NOTE | 2020-11-12 13:30 | MHC.SHP ---
Pre-Procedural Eval Section A Date of Service: 11/12/20 The patient is an INPATIENT: No Changes since office visit: Yes Patient answered all questions; No Cold of Flu in the past 2 weeks, No New Medical Problems and No Changes in Medication The History & Physical has been completed within 30 days and I have reviewed it.: Yes Section B Chief Complaint: persistent afib Allergies: Allergies Allergy/AdvReac Type Severity Reaction Status Date / Time amoxicillin [AMOXICILLIN] Allergy Intermediate RASH Verified 10/24/20 08:15 egg [Egg] Allergy Mild SWELLING Verified 10/24/20 08:15 OF FACE, ITCHY eggplant [EGGPLANT] Allergy Mild PUFFY Verified 10/24/20 08:15 FACE, ITCHY milk [MILK] Allergy Mild SWELLING Verified 10/24/20 08:15 OF FACE, ITCHY tomato [Tomato] Allergy Mild SWELLING Verified 10/24/20 08:15 avocado [AVOCADO] Allergy Unknown SWEELING, Verified 10/24/20 08:15 ITCHY nut - unspecified [nut] Allergy Unknown SWELLING Verified 10/24/20 08:15 OF FACE,ITCHY Seafood Allergy Unknown SWELLING Uncoded 10/24/20 08:15 Plan I have reviewed the history and physical and performed a pertinent physical examination on my patient. No changes have occurred unless specified.
--- NOTE | 2020-11-12 13:52 | ECG_ITS ---
Test Reason : POST CARDIOVERSION Blood Pressure : / mmHG Vent. Rate : 081 BPM Atrial Rate : 081 BPM P-R Int : 188 ms QRS Dur : 076 ms QT Int : 370 ms P-R-T Axes : 002 -10 -10 degrees QTc Int : 429 ms Normal sinus rhythm Minimal voltage criteria for LVH, may be normal variant ( R in aVL ) Borderline ECG When compared with ECG of 19-APR-2020 01:32, Sinus rhythm has replaced Atrial fibrillation Referred By: Gabe Dahl Electronically Signed By:RAFAEL CARDONA
--- NOTE | 2020-11-12 13:52 | HO.CARDIVERS ---
Cardioversion Procedure Note Cardioversion Date of Procedure: 11/12/2020 Ordering Provider: Myself Performing Provider: Myself Indication for Procedure: Persistent atrial fibrillation Pre-Op Diagnosis: Persistent atrial fibrillation Post-Op Diagnosis: Sinus rhythm Performed with Transesophageal Echo: No History: See H&P for details Consent: Verbal and Written consent was obtained from the patient before starting and confirming oral anticoagulation use The patient was made aware of the risk of synchronized cardioversion including risk, benefits, alternatives and 2nd opinion Procedure: After consent obtained, cardioversion pads were attached in AP configuration and the patient was sedated by the anesthesia team. Once adequate sedation achieved, patient was delivered 200 joules of biphasic synchronized energy in AP configuration Complications: None Impression: Successful conversion to sinus rhythm Recommendations: 1. 12 lead EKG 2. Continue full oral anticoagulation 3. Follow up in the clinic after Holter monitor
[2020-11-12 13:54] VITALS: BP 145/87; PULSE 81; RESP 16; TEMP 36.8; O2SAT 99
[2020-11-12 13:59] VITALS: BP 139/82; PULSE 84; RESP 18; O2SAT 99
[2020-11-12 14:04] VITALS: BP 144/90; PULSE 87; RESP 18; O2SAT 98
[2020-11-12 14:09] VITALS: BP 153/88; PULSE 82; RESP 20; O2SAT 97
[2020-11-12 14:17] VITALS: BP 155/91; PULSE 79; RESP 17; TEMP 36.7; O2SAT 97
== END 2020-11-12 14:52 | disposition home or self-care (01) ==
PROVIDERS: PCP Internal Medicine; Visit Provider Internal Medicine Cardiovascular Disease
PROC: 5A2204Z Restoration of Cardiac Rhythm, Single (ICD-10-PCS; principal; 2020-11-12 13:30)
DX: I48.19 Other persistent atrial fibrillation (principal); I10 Essential (primary) hypertension
CPT/HCPCS: 92960; 93005; J0330; J0461; J2370

== ENCOUNTER → 2020-12-23 14:35 | Outpatient (BNVA) | payer MEDICARE, SELFPAY | PROVIDERS: PCP Internal Medicine; Referring Provider Internal Medicine; Visit Provider Internal Medicine Cardiovascular Disease | DX: I48.0 Paroxysmal atrial fibrillation (principal); I10 Essential (primary) hypertension | CPT/HCPCS: 93005; 99212 ==

== ENCOUNTER → 2021-02-23 11:05 | Outpatient (REF) | payer MEDICARE, SELFPAY ==
--- NOTE | 2021-02-23 11:13 | HM_ITS ---
Total monitoring time 3 days. Underlying rhythm is sinus. Minimum heart rate 57/Min. Maximum 114/Min. Average 73/Min. No atrial fibrillation or flutter or AV blocks or pauses. Rare supraventricular ectopy with minimal burden. 16 supraventricular episodes, longest 27 beats. Rare ventricular ectopy with minimal burden. No patient events. MTDD
== END ==
LOC: HO.CARD 11:05
PROVIDERS: PCP Internal Medicine; Visit Provider Internal Medicine Cardiovascular Disease
DX: I48.0 Paroxysmal atrial fibrillation (principal)
CPT/HCPCS: 93242

== ENCOUNTER → 2021-03-16 10:35 | Outpatient (BNVA) | payer MEDICARE, SELFPAY | PROVIDERS: PCP Internal Medicine; Referring Provider Internal Medicine; Visit Provider Internal Medicine Cardiovascular Disease | DX: I48.0 Paroxysmal atrial fibrillation (principal); I10 Essential (primary) hypertension | CPT/HCPCS: 99212 ==

== ENCOUNTER 2021-05-18 13:58 | Outpatient (REF) | payer MEDICARE, SELFPAY ==
--- NOTE | ~2021-05-18 | XR_ITS ---
EXAMINATION: XR CHEST CLINICAL INFORMATION: Cough, hypertension and pneumonia COMPARISON: None TECHNIQUE: 2 views of the chest were obtained. FINDINGS: Lungs are well-expanded with platelike atelectasis in the lingula. Rest of lungs are clear. The heart size is enlarged. Pulmonary vascularity is normal. There is an ectatic right brachiocephalic vein. No gross bony abnormality seen. XR/XR chest 2V IMPRESSION: Platelike atelectasis in the lingula.
[2021-05-18 14:40] LABS: MANUAL DIFF FLAG NO
[2021-05-18 14:51] LABS: Basophils Percent Auto 0.8 % (0-2); Hematocrit 38.6 % (37.0-47.0); Hemoglobin 12.7 g/dl (12.0-16.0); Imm Gran Abs Auto 0.02 X10*3/uL (0.00-0.03); Imm Gran Pct Auto 0.4 % (0.0-0.4); Lymphocytes Absolute Auto 1.3 X10*3/uL (1.2-4.9); Lymphocytes Percent Auto 25.9 % (20-40); Mean Corpuscular HGB Conc 32.9 g/dl (31.0-35.0); Mean Corpuscular Hemoglobin 29.3 pg (27.0-33.0); Mean Corpuscular Volume 88.9 fL (80.0-98.0); Mean Platelet Volume 9.4 fL (9.4-12.3); Monocytes Absolute Auto 0.7 X10*3/uL (0.1-1.2); Monocytes Percent Auto 14.7 % (2-11); Neutrophils Absolute Auto 2.9 x10*3/uL (2.0-8.3); Neutrophils Percent Auto 58.2 % (45-73); Platelet Count 211 X10*3/uL (160-400); Red Blood Count 4.34 X10*6/uL (4.20-5.50); Red Cell Distribution Width 13.3 % (11.0-16.0)
[2021-05-18 15:18] LABS: Alanine Aminotransferase 19 U/L (0-31); Albumin Level 3.9 g/dL (3.5-5.0); Alkaline Phosphatase 76 U/L (39-117); Anion Gap 13 (12-20); Aspartate Amino Transferase 23 U/L (5-31); Bilirubin Total 0.2 mg/dL (0.0-1.0); Blood Urea Nitrogen 16 mg/dL (9-16); Carbon Dioxide 26 mmol/L (22-29); Chloride 104 mmol/L (96-108); Estimated Glomerular Filt Rate > 60; Glucose Random 88 mg/dL (60-115); Potassium 3.8 mmol/L (3.3-5.1); Sodium 139 mmol/L (135-145); Total Protein 7.3 g/dL (6.5-8.0)
[2021-05-18 15:20] LABS: Appearance Urine HAZY; Color Urine YELLOW; Glucose Urine UA NEG (NEG); Leukocyte Esterase Urine NEG (NEG); Nitrite Urine NEG (NEG); Specific Gravity - Urine 1.025 (1.005-1.025); UACC Culture Trigger NO; Urine Blood 3+ (NEG); Urine Ketones NEG (NEG); Urine Protein 2+ MG/DL (NEG-TRACE)
[2021-05-18 15:26] LABS: Influenza A PCR POSITIVE (Negative); Influenza B PCR NEGATIVE (Negative); Resp Syncy Virus RNA Qual PCR NEGATIVE (Negative); SARS COV2 PCR INHOUSE NEGATIVE (Negative)
[2021-05-18 15:51] LABS: Bacteria Urine 2+ /LPF; Squamous Epithelial Cell Urine 1+ /LPF; WBC Urine 0 /HPF (0-4)
== END 2021-05-18 13:59 | disposition home or self-care (01) ==
LOC: HO.LAB 13:58
PROVIDERS: PCP Internal Medicine; Visit Provider Internal Medicine
DX: R05.9 Cough, unspecified (principal); R53.83 Other fatigue; I10 Essential (primary) hypertension; I48.0 Paroxysmal atrial fibrillation; Z20.822 Contact with and (suspected) exposure to COVID-19
CPT/HCPCS: 0241U; 71046; 80053; 81001; 85025; 87086; 87088; 87186

== ENCOUNTER 2021-05-21 17:52 | Emergency (ER) | payer MEDICARE, SELFPAY ==
--- NOTE | ~2021-05-21 | XR_ITS ---
EXAMINATION: XR CHEST CLINICAL INFORMATION: Chest pain. COMPARISON: Chest radiograph dated from 05/18/2021. TECHNIQUE: 2 views of the chest were obtained. FINDINGS: Redemonstration of subtle platelike atelectasis in the left lower lobe. No new focal airspace opacities, pleural effusions or pneumothorax. Stable appearance of the cardiomediastinal silhouette. No acute osseous abnormalities. XR/XR chest 2V IMPRESSION: No acute cardiopulmonary findings.
[2021-05-21 17:58] VITALS: BP 160/77; RESP 19; TEMP 36.6; O2SAT 98; BMI 32.1
--- NOTE | 2021-05-21 18:01 | ECG_ITS ---
Test Reason : CHEST PAIN Blood Pressure : / mmHG Vent. Rate : 089 BPM Atrial Rate : 089 BPM P-R Int : 168 ms QRS Dur : 072 ms QT Int : 312 ms P-R-T Axes : 036 -12 -04 degrees QTc Int : 379 ms Normal sinus rhythm Minimal voltage criteria for LVH, may be normal variant ( R in aVL ) Borderline ECG When compared with ECG of 12-NOV-2020 14:00, No significant change was found Referred By: Generic ED Physician Electronically Signed By:DEDE OLIVERA
[2021-05-21 18:22] LABS: MANUAL DIFF FLAG NO
[2021-05-21 18:37] LABS: Basophils Percent Auto 0.5 % (0-2); Hematocrit 39.1 % (37.0-47.0); Hemoglobin 12.9 g/dl (12.0-16.0); Imm Gran Abs Auto 0.01 X10*3/uL (0.00-0.03); Imm Gran Pct Auto 0.3 % (0.0-0.4); Lymphocytes Absolute Auto 1.7 X10*3/uL (1.2-4.9); Lymphocytes Percent Auto 43.2 % (20-40); Mean Corpuscular Volume 87.9 fL (80.0-98.0); Mean Platelet Volume 9.7 fL (9.4-12.3); Monocytes Absolute Auto 0.3 X10*3/uL (0.1-1.2); Monocytes Percent Auto 7.3 % (2-11); Neutrophils Absolute Auto 1.9 x10*3/uL (2.0-8.3); Neutrophils Percent Auto 48.7 % (45-73); Platelet Count 210 X10*3/uL (160-400); Red Blood Count 4.45 X10*6/uL (4.20-5.50); Red Cell Distribution Width 13.4 % (11.0-16.0)
[2021-05-21 18:40] LABS: Influenza A Positive (Negative); Influenza B2 Negative (Negative)
[2021-05-21 18:41] LABS: Anion Gap 15 (12-20); Blood Urea Nitrogen 12 mg/dL (9-16); Calcium 8.9 mg/dL (8.4-10.2); Carbon Dioxide 23 mmol/L (22-29); Chloride 107 mmol/L (96-108); Creatinine Clr Calc Pharmacy 62.8; Estimated Glomerular Filt Rate > 60; Glucose Random 136 mg/dL (60-115); Potassium 4.1 mmol/L (3.3-5.1); Sodium 141 mmol/L (135-145)
[2021-05-21 18:42] LABS: B Type Natriuretic Peptide 89 pg/mL (<100); Troponin-I High Sensitivity 4.2 ng/L (<3.5-17.0)
[2021-05-21 20:02] LABS: IDNOW Serial# 55D5AD1C
[2021-05-21 20:03] LABS: COVID-19 Test Negative (Negative)
[2021-05-21 20:05] VITALS: BP 179/89; PULSE 93; RESP 18; TEMP 37.6; O2SAT 100
[2021-05-21 20:42] VITALS: BP 153/79; PULSE 78; RESP 17; TEMP 37.7; O2SAT 97
--- NOTE | 2021-05-21 21:09 | ED.CHESTPAIN ---
HPI - Chest Pain General Chief Complaint: Chest Pain Stated Complaint: chest pains, diff breathing, history of pnemonia Time Seen by Provider: 05/21/21 20:07 Source: patient Mode of arrival: ambulatory Limitations: no limitations History of Present Illness HPI narrative: Patient comes to the emergency room complaining of not feeling well. Patient tested positive for influenza 3 days ago. Patient states that she was instructed to return to the emergency room if she was not feeling well Related Data Home Medications Medication Instructions Recorded Confirmed alprazolam 0.25 mg tablet 0.25 mg PO 10/14/20 03/16/21 lisinopril 5 mg tablet 5 mg PO DAILY 10/14/20 03/16/21 Previous Rx's Medication Instructions Recorded rivaroxaban 20 mg tablet (Xarelto) 20 mg PO DAILY #90 tab 03/25/21 metoprolol succinate 50 mg 50 mg PO DAILY 90 Days #90 tab 04/24/21 tablet,extended release 24 hr oseltamivir 75 mg capsule (Tamiflu) 75 mg PO BID 5 Days #10 cap 05/21/21 Allergies Allergy/AdvReac Type Severity Reaction Status Date / Time amoxicillin [AMOXICILLIN] Allergy Intermediate RASH Verified 10/24/20 08:15 egg [Egg] Allergy Mild SWELLING Verified 10/24/20 08:15 OF FACE, ITCHY eggplant [EGGPLANT] Allergy Mild PUFFY Verified 10/24/20 08:15 FACE, ITCHY milk [MILK] Allergy Mild SWELLING Verified 10/24/20 08:15 OF FACE, ITCHY tomato [Tomato] Allergy Mild SWELLING Verified 10/24/20 08:15 avocado [AVOCADO] Allergy Unknown SWEELING, Verified 10/24/20 08:15 ITCHY nut - unspecified [nut] Allergy Unknown SWELLING Verified 10/24/20 08:15 OF FACE,ITCHY Seafood Allergy Unknown SWELLING Uncoded 10/24/20 08:15 PMFSH Past Medical History Medical History Afib Hypertension Paroxysmal atrial fibrillation Surgical History History of sinus surgery Family History Family History Father No problems noted. Mother No problems noted. Social History Social History Patient Tobacco Use Status: Never used Tobacco Second Hand Smoke Exposure: No Advance Directives: No Advance Directives Information Provided: Yes Physical Exam Vital Signs: Vital Signs: Last Vital Signs Temp 99.8 F 05/21/21 20:42 Pulse 78 05/21/21 20:42 Resp 17 05/21/21 20:42 BP 153/79 H 05/21/21 20:42 Pulse Ox 97 05/21/21 20:42 BMI result Body Mass Index 32.1 Course Course Course Narrative: When patient walks, her oxygen saturation stays at 97%. Patient was given the 1st dose of Tamiflu. Discussed with the patient that given that she has had symptoms for 4 days, it is unlikely that he will help much. MDM - Chest Pain Lab Data Result diagrams: 05/21/21 18:15 05/21/21 18:15 Labs: Lab Results 05/21/21 05/21/21 05/21/21 Range/Units 18:15 18:15 18:15 WBC 4.0 L (4.8-10.8) X10*3/uL RBC 4.45 (4.20-5.50) X10*6/uL Hgb 12.9 (12.0-16.0) g/dl Hct 39.1 (37.0-47.0) % MCV 87.9 (80.0-98.0) fL MCH 29.0 (27.0-33.0) pg MCHC 33.0 (31.0-35.0) g/dl RDW 13.4 (11.0-16.0) % Plt Count 210 (160-400) X10*3/uL MPV 9.7 (9.4-12.3) fL Immature Gran % (Auto) 0.3 (0.0-0.4) % Neut % (Auto) 48.7 (45-73) % Lymph % (Auto) 43.2 H (20-40) % [place] % (Auto) 7.3 (2-11) % Eos % (Auto) 0.0 (0-4) % Baso % (Auto) 0.5 (0-2) % Lymph # (Auto) 1.7 (1.2-4.9) X10*3/uL [place] # (Auto) 0.3 (0.1-1.2) X10*3/uL Eos # (Auto) 0.0 (0.0-0.4) X10*3/uL Baso # (Auto) 0.0 (0.0-0.2) X10*3/uL Abs Immat Gran (auto) 0.01 (0.00-0.03) X10*3/uL Absolute Neuts (auto) 1.9 L (2.0-8.3) x10*3/uL Absolute Nucleated RBC 0.000 (0.0-0.012) X10*3/uL Nucleated RBC % (auto) 0.0 (0.0-0.2) /100WBC Sodium 141 (135-145) mmol/L Potassium 4.1 (3.3-5.1) mmol/L Chloride 107 (96-108) mmol/L Carbon Dioxide 23 (22-29) mmol/L Anion Gap 15 (12-20) BUN 12 (9-16) mg/dL Creatinine 0.76 (0.5-1.4) mg/dL Estim Creat Clear Calc 62.8 Estimated GFR > 60 Random Glucose 136 H (60-115) mg/dL Calcium 8.9 (8.4-10.2) mg/dL Troponin I High Sens 4.2 (<3.5-17.0) ng/L B-Natriuretic Peptide 89 (<100) pg/mL COVID-19 (LELIA) (Negative) COVID-19 Clin Com Influenza Type A (SWATI) (Negative) Influenza Type B (SWATI) (Negative) Influenza A & B Note 05/21/21 05/21/21 Range/Units 18:15 18:15 WBC (4.8-10.8) X10*3/uL RBC (4.20-5.50) X10*6/uL Hgb (12.0-16.0) g/dl Hct (37.0-47.0) % MCV (80.0-98.0) fL MCH (27.0-33.0) pg MCHC (31.0-35.0) g/dl RDW (11.0-16.0) % Plt Count (160-400) X10*3/uL MPV (9.4-12.3) fL Immature Gran % (Auto) (0.0-0.4) % Neut % (Auto) (45-73) % Lymph % (Auto) (20-40) % [place] % (Auto) (2-11) % Eos % (Auto) (0-4) % Baso % (Auto) (0-2) % Lymph # (Auto) (1.2-4.9) X10*3/uL [place] # (Auto) (0.1-1.2) X10*3/uL Eos # (Auto) (0.0-0.4) X10*3/uL Baso # (Auto) (0.0-0.2) X10*3/uL Abs Immat Gran (auto) (0.00-0.03) X10*3/uL Absolute Neuts (auto) (2.0-8.3) x10*3/uL Absolute Nucleated RBC (0.0-0.012) X10*3/uL Nucleated RBC % (auto) (0.0-0.2) /100WBC Sodium (135-145) mmol/L Potassium (3.3-5.1) mmol/L Chloride (96-108) mmol/L Carbon Dioxide (22-29) mmol/L Anion Gap (12-20) BUN (9-16) mg/dL Creatinine (0.5-1.4) mg/dL Estim Creat Clear Calc Estimated GFR Random Glucose (60-115) mg/dL Calcium (8.4-10.2) mg/dL Troponin I High Sens (<3.5-17.0) ng/L B-Natriuretic Peptide (<100) pg/mL COVID-19 (LELIA) Negative (Negative) COVID-19 Clin Com See Note Influenza Type A (SWATI) Positive A (Negative) Influenza Type B (SWATI) Negative (Negative) Influenza A & B Note See Note Imaging Data Chest x-ray: Radiologist's impression: Redemonstration of subtle platelike atelectasis in the left lower lobe. No new focal airspace opacities, pleural effusions or pneumothorax. Stable appearance of the cardiomediastinal silhouette. No acute osseous abnormalities. XR/XR chest 2V IMPRESSION: No acute cardiopulmonary findings. Discharge Plan Discharge Clinical Impression: Influenza A Patient Disposition: Home, Self-Care Instructions: Influenza (ED) Additional Instructions: Please follow-up with your primary care physician tomorrow. If you have any worsening or new symptoms, please return to the emergency room or call 911 Prescriptions: New oseltamivir [Tamiflu] 75 mg capsule 75 mg PO BID 5 Days Qty: 10 0RF No Action Xarelto 20 mg tablet 20 mg PO DAILY Qty: 90 3RF Rx Instructions: must administer with evening meal metoprolol succinate 50 mg tablet extended release 24 hr 50 mg PO DAILY 90 Days Qty: 90 3RF alprazolam 0.25 mg tablet 0.25 mg PO 0RF lisinopril 5 mg tablet 5 mg PO DAILY 0RF
--- NOTE | 2021-05-21 21:16 | PC.NURSE ---
Pt awake and alert, last took tylenol 3 hours ago. Pt seated upright on stretcher in no distress. Spo2 97% at rest and while walking in room . Pt denies increased dyspnea with exersion. Pt's daughter believes they have a pulse ox at home to use, went over values to monitor.
[2021-05-21] MEDS: Oseltamivir Phosphate 75 MG CAPSULE PO (21:42)
== END 2021-05-21 21:43 | disposition home or self-care (01) ==
PROVIDERS: Emergency Provider Emergency Medicine
DX: J11.1 Influenza due to unidentified influenza virus with other respiratory manifestations (principal); R06.02 Shortness of breath; I10 Essential (primary) hypertension; I48.0 Paroxysmal atrial fibrillation
CPT/HCPCS: 71046; 80048; 83880; 84484; 85025; 87502; 87635; 93005; 99283; 99284

== ENCOUNTER → 2021-09-21 10:07 | Outpatient (BNVA) | payer MEDICARE, SELFPAY | PROVIDERS: Visit Provider Internal Medicine Cardiovascular Disease | DX: I48.0 Paroxysmal atrial fibrillation (principal); I10 Essential (primary) hypertension | CPT/HCPCS: 99212 ==

== ENCOUNTER 2022-03-11 10:13 | Observation (INO) | payer MEDICARE, SELFPAY ==
--- NOTE | ~2022-03-11 | CT_ITS ---
EXAMINATION: CT HEAD WITHOUT CONTRAST CLINICAL INFORMATION: Altered mental status, evaluate for stroke COMPARISON: 01/04/2010 TECHNIQUE: Contiguous axial imaging was performed from the skull base to vertex without intravenous administration of contrast. This CT examination was performed using dose optimization techniques as appropriate, variously including the following: *Automated exposure control *Adjustment of mA and/or kV according to patient size (this includes techniques or standardized protocols for targeted exams where dose is matched to indication/reason for exam; i.e. extremities or head) *Use of iterative reconstruction technique DLP: 569 mGy-cm FINDINGS: There is no midline shift. There is no mass effect. There is no hemorrhage. The basal cisterns appear patent. The posterior fossa is grossly within normal limits. No extra-axial collection. Vascular calcifications are noted here. Scattered areas of white matter ischemic change are noted. Ventricular system is within normal limits. Probable sinus disease on limited evaluation of the sinuses. CT/CT head/brain wo IV con IMPRESSION: No midline shift, mass effect or hemorrhage. Scattered areas of decreased attenuation in the white matter consistent with ischemic change. Given the history if further evaluation is warranted recommendation is diffusion MR
--- NOTE | ~2022-03-11 | XR_ITS ---
EXAMINATION: XR CHEST CLINICAL INFORMATION: Syncope COMPARISON: 05/21/2021 TECHNIQUE: Frontal view of the chest was obtained. FINDINGS: Borderline size heart. Atelectasis/scar left midlung. Otherwise, no significant abnormality is noted involving the heart, lungs, mediastinum, bony thorax or soft tissues. XR/XR chest 1V IMPRESSION: No acute intrathoracic disease.
[2022-03-11 10:36] VITALS: BP 124/81; PULSE 81; O2SAT 96
[2022-03-11 10:42] VITALS: BP 125/68; PULSE 81; RESP 21; TEMP 36.8; O2SAT 98; BMI 32.8
--- NOTE | 2022-03-11 11:03 | ED.GENADULT ---
HPI - General Adult General Chief complaint: General Medical Stated complaint: +COVID W/WEAKNESS Time Seen by Provider: 03/11/22 11:02 Source: patient, family and EMS Mode of arrival: ambulatory Limitations: no limitations History of Present Illness HPI narrative: 71 year old female with 2 days of URI tested positive for covid. Today was with her daughter when she felt she went stiff in her chair. She has no history of seizures is alert and oriented at this time with normal vitals. Otherwise well. Related Data Home Medications Medication Instructions Recorded Confirmed aspirin 81 mg tablet,delayed 81 mg PO DAILY 09/21/21 03/11/22 release (Adult Low Dose Aspirin) omega-3 fatty acids 1,000 mg 1,000 mg PO DAILY 03/11/22 03/11/22 capsule Previous Rx's Medication Instructions Recorded metoprolol succinate 50 mg 50 mg PO DAILY 90 days #90 tabs 04/24/21 tablet,extended release 24 hr Allergies Allergy/AdvReac Type Severity Reaction Status Date / Time amoxicillin [AMOXICILLIN] Allergy Intermediate RASH Verified 10/24/20 08:15 egg [Egg] Allergy Mild SWELLING Verified 10/24/20 08:15 OF FACE, ITCHY eggplant [EGGPLANT] Allergy Mild PUFFY Verified 10/24/20 08:15 FACE, ITCHY milk [MILK] Allergy Mild SWELLING Verified 10/24/20 08:15 OF FACE, ITCHY tomato [Tomato] Allergy Mild SWELLING Verified 10/24/20 08:15 avocado [AVOCADO] Allergy Unknown SWEELING, Verified 10/24/20 08:15 ITCHY nut - unspecified [nut] Allergy Unknown SWELLING Verified 10/24/20 08:15 OF FACE,ITCHY Seafood Allergy Unknown SWELLING Uncoded 10/24/20 08:15 Review of Systems Review of Systems: Review of systems: General: Patient denies any fever chills recent illness or falls Musculoskeletal: Denies back pain or body aches or other injuries HEENT: denies headache, runny nose, ear pain Respiratory: cough denies shortness of breath, Cardiovascular: no chest pain or palpitations : denies dysuria, frequency Abdomen: no nausea vomiting denies abdominal pain Extremities: no swelling, no pain Skin: no diaphoresis Yes all other systems are reviewed and are negative PMFSH Past Medical History Medical History Afib Hypertension Paroxysmal atrial fibrillation Surgical History History of sinus surgery Family History Family History Father No problems noted. Mother No problems noted. Social History Social History Alcohol intake: never Patient Tobacco Use Status: Never used Tobacco Smoked in Last 30 Days: No Second Hand Smoke Exposure: No Use of substances other than those prescribed or required for medical reasons: No Advance Directives: No Advance Directives Information Provided: No Physical Exam ED Vital Signs: Vital Signs - 24 hr 03/11/22 10:42 Temperature 98.2 F Pulse Rate 81 Respiratory Rate 21 H Blood Pressure 125/68 Pulse Oximetry 98 Oxygen Delivery Method Room Air BMI result Body Mass Index 32.8 Neurological exam: CN II- XII tested. Patient is alert and oriented to person place and time. Patient has no dysphagia or dysarthia, denies good vision in all four vision matthews no nystagmus on exam, good strength to upper and lower extremities with normal reflexes to brachioradialis, wrist, patella and achilles. Negative romberg, good finger to nose and heel to cespedes. General: Well-appearing well-nourished in no signs of distress HEENT: Normocephalic atraumatic Neck: No signs of JVD, no masses no tenderness or lymphadenopathy Cardiovascular: Regular rate and rhythm Respiratory: Clear to auscultation bilaterally Abdomen: Soft nontender no masses Extremities: Normal pedal pulses no signs of edema Skin: Dry warm no rashes Back: No tenderness full ROM Medications Administered Discontinued Medications Generic Name Dose Route Start Last Admin Trade Name Freq PRN Reason Stop Dose Admin Sodium Chloride 1,000 mls @ 999 mls/hr 03/11/22 11:15 03/11/22 11:26 Ns IV 03/11/22 12:15 999 mls/hr .Q1H1M [facility] Administration Medical Decision Making Medical Decision Making [facility] Narrative: concern for syncope I will call her daughter to verify and check labs. I spoke to the daughter labs are all negative.Very concerning story for syncope I spoke with Dr. Osorio from the hospitalist service who agreed with the admission. Differential Diagnosis Differential Diagnoses: The differential diagnosis associated with the presentation includes Seizure, syncope, flu like symtoms, dehydration, electrolyte abnormality Admission/Observation Consideration of admission/observation: Escalation of care including admission/observation considered Consult Healthcare Provider Management of the patient was discussed with: Hospitalist I spoke with Mireya her daughter who states she had a headache. She states she was woke up and she was stiff she fell back on the chair didn't respond for a few seconds. She then came back after a few minutes. She then woke up. She has never done this before and sweating. Lab Data MDM Lab Attestation statement: I reviewed the patient's lab results. Result Diagrams: 03/11/22 11:15 03/11/22 11:15 Labs: Lab Results 03/11/22 03/11/22 03/11/22 Range/Units 11:15 11:15 11:15 WBC 5.7 (4.8-10.8) X10*3/uL RBC 4.46 (4.20-5.50) X10*6/uL Hgb 12.5 (12.0-16.0) g/dl Hct 38.5 (37.0-47.0) % MCV 86.3 (80.0-98.0) fL MCH 28.0 (27.0-33.0) pg MCHC 32.5 (31.0-35.0) g/dl RDW 13.2 (11.0-16.0) % Plt Count 264 D (160-400) X10*3/uL MPV 9.6 (9.4-12.3) fL Immature Gran % (Auto) 0.2 (0.0-0.4) % Neut % (Auto) 73.3 H (45-73) % Lymph % (Auto) 17.3 L (20-40) % [place] % (Auto) 8.4 (2-11) % Eos % (Auto) 0.5 (0-4) % Baso % (Auto) 0.3 (0-2) % Lymph # (Auto) 1.0 L (1.2-4.9) X10*3/uL [place] # (Auto) 0.5 (0.1-1.2) X10*3/uL Eos # (Auto) 0.0 (0.0-0.4) X10*3/uL Baso # (Auto) 0.0 (0.0-0.2) X10*3/uL Abs Immat Gran (auto) 0.01 (0.00-0.03) X10*3/uL Absolute Neuts (auto) 4.2 (2.0-8.3) x10*3/uL Absolute Nucleated RBC 0.000 (0.0-0.012) X10*3/uL Nucleated RBC % (auto) 0.0 (0.0-0.2) /100WBC Sodium 139 (135-145) mmol/L Potassium 4.1 (3.3-5.1) mmol/L Chloride 106 (96-108) mmol/L Carbon Dioxide 24 (22-29) mmol/L Anion Gap 13 (12-20) BUN 17 H (9-16) mg/dL Creatinine 0.94 (0.5-1.4) mg/dL Estim Creat Clear Calc 49.3 Estimated GFR 59 Random Glucose 144 H (60-115) mg/dL Calcium 9.2 (8.4-10.2) mg/dL Total Bilirubin 0.4 (0.0-1.0) mg/dL Direct Bilirubin < 0.2 (0.0-0.5) mg/dL AST 18 (5-31) U/L ALT 13 (0-31) U/L Alkaline Phosphatase 84 (39-117) U/L Total Protein 6.6 (6.5-8.0) g/dL Albumin 3.7 (3.5-5.0) g/dL COVID-19 (LELIA) Positive A (Negative) COVID-19 Clin Com See Note Independent Interpretation I performed an independent interpretation of an: EKG and Plain X-Ray Interpretation: EKG Rate 73 nsr normal intervals no signs of ischemia, XR chest no acute infiltrate. External Record Review External record reviewed: Inpatient record Discharge Plan Discharge Clinical Impression: COVID, Syncope Patient Disposition: Admitted As Inpatient
--- NOTE | 2022-03-11 11:06 | ECG_ITS ---
Test Reason : SOB Blood Pressure : / mmHG Vent. Rate : 073 BPM Atrial Rate : 073 BPM P-R Int : 170 ms QRS Dur : 080 ms QT Int : 356 ms P-R-T Axes : 049 -07 -04 degrees QTc Int : 392 ms Normal sinus rhythm Minimal voltage criteria for LVH, may be normal variant ( R in aVL ) Borderline ECG When compared with ECG of 21-MAY-2021 18:03, No significant change was found Referred By: Liu Dial Electronically Signed By:DEDE OLIVERA
[2022-03-11] MEDS: 0.9 % Sodium Chloride 1,000 ML 999 ML IV (11:26)
[2022-03-11 11:36] LABS: MANUAL DIFF FLAG NO
[2022-03-11 11:46] LABS: Basophils Percent Auto 0.3 % (0-2); Eosinophils Percent Auto 0.5 % (0-4); Hematocrit 38.5 % (37.0-47.0); Hemoglobin 12.5 g/dl (12.0-16.0); Imm Gran Abs Auto 0.01 X10*3/uL (0.00-0.03); Imm Gran Pct Auto 0.2 % (0.0-0.4); Lymphocytes Percent Auto 17.3 % (20-40); Mean Corpuscular HGB Conc 32.5 g/dl (31.0-35.0); Mean Corpuscular Volume 86.3 fL (80.0-98.0); Mean Platelet Volume 9.6 fL (9.4-12.3); Monocytes Absolute Auto 0.5 X10*3/uL (0.1-1.2); Monocytes Percent Auto 8.4 % (2-11); Neutrophils Absolute Auto 4.2 x10*3/uL (2.0-8.3); Neutrophils Percent Auto 73.3 % (45-73); Platelet Count 264 X10*3/uL (160-400); Red Blood Count 4.46 X10*6/uL (4.20-5.50); Red Cell Distribution Width 13.2 % (11.0-16.0); White Blood Count 5.7 X10*3/uL (4.8-10.8)
[2022-03-11 11:49] LABS: COVID-19 Test Positive (Negative); IDNOW Serial# BCCEAD1C
[2022-03-11 12:00] LABS: Alanine Aminotransferase 13 U/L (0-31); Albumin Level 3.7 g/dL (3.5-5.0); Alkaline Phosphatase 84 U/L (39-117); Anion Gap 13 (12-20); Aspartate Amino Transferase 18 U/L (5-31); Bilirubin Direct < 0.2 mg/dL (0.0-0.5); Bilirubin Total 0.4 mg/dL (0.0-1.0); Blood Urea Nitrogen 17 mg/dL (9-16); Calcium 9.2 mg/dL (8.4-10.2); Carbon Dioxide 24 mmol/L (22-29); Chloride 106 mmol/L (96-108); Creatinine Clr Calc Pharmacy 49.3; Estimated Glomerular Filt Rate 59; Glucose Random 144 mg/dL (60-115); Potassium 4.1 mmol/L (3.3-5.1); Sodium 139 mmol/L (135-145); Total Protein 6.6 g/dL (6.5-8.0)
--- NOTE | 2022-03-11 12:02 | PHA.MEDREC ---
Pharmacy Consult ? Medication Reconciliation Pharmacy has completed the medication reconciliation. Spoke to patient's daughter Liberty ([phone]) who confirmed all patient's medications.
[2022-03-11 16:00] VITALS: BP 175/86; PULSE 82; RESP 16; TEMP 36.9; O2SAT 96
--- NOTE | 2022-03-11 16:01 | PM.IMHP ---
History of Present Illness Date of Service: 03/11/22 Chief Complaint: Syncope 71/F with HTN, AFIB (declined blood thiners) who was sitting in chair and her daughter stated she became stiff (like a person), her eyes froze, no movment, she didn't colapse, her speech was not slurred, the episode came on all of [place], daughter thought she had a heart attack and the episode lasted 3 minutes. Once alert, was grogy, no urinary or stool incontinence, no tongue bite. She has been sick and tested positive for covid at home (she's vaccinated +1 booster) Review of Systems Review of Systems: Gen: no fever Resp: no sob, no cough CV: no chest, no [place], no leg edema GI: No n/v, no abd pain Neuro: No confusion Yes all other systems are reviewed and are negative [facility] Medical History Afib Hypertension Paroxysmal atrial fibrillation Family History Father No problems noted. Mother No problems noted. Surgical History History of sinus surgery Social History Alcohol intake: never Patient Tobacco Use Status: Never used Tobacco Smoked in Last 30 Days: No Second Hand Smoke Exposure: No Use of substances other than those prescribed or required for medical reasons: No Advance Directives: No Advance Directives Information Provided: No Meds Allergies Allergy/AdvReac Type Severity Reaction Status Date / Time amoxicillin [AMOXICILLIN] Allergy Intermediate RASH Verified 10/24/20 08:15 egg [Egg] Allergy Mild SWELLING Verified 10/24/20 08:15 OF FACE, ITCHY eggplant [EGGPLANT] Allergy Mild PUFFY Verified 10/24/20 08:15 FACE, ITCHY milk [MILK] Allergy Mild SWELLING Verified 10/24/20 08:15 OF FACE, ITCHY tomato [Tomato] Allergy Mild SWELLING Verified 10/24/20 08:15 avocado [AVOCADO] Allergy Unknown SWEELING, Verified 10/24/20 08:15 ITCHY nut - unspecified [nut] Allergy Unknown SWELLING Verified 10/24/20 08:15 OF FACE,ITCHY Seafood Allergy Unknown SWELLING Uncoded 10/24/20 08:15 Active Medications: Current Medications Pharmacy Consult (Consult Rx Perform Med Rec) 1 each MISCELLANE ONCE PRN PRN Reason: Consult order Home Medications Medication Instructions Recorded Confirmed Last Taken Type aspirin 81 mg tablet,delayed 81 mg PO DAILY 09/21/21 03/11/22 03/10/22 History release (Adult Low Dose Aspirin) omega-3 fatty acids 1,000 mg 1,000 mg PO DAILY 03/11/22 03/11/22 03/10/22 History capsule Physical Exam Vital Signs and Narrative: Vital Signs: Last Vital Signs Temp 98.2 F 03/11/22 10:42 Pulse 81 03/11/22 10:42 Resp 21 H 03/11/22 10:42 BP 125/68 03/11/22 10:42 Pulse Ox 98 03/11/22 10:42 O2 Del Method 03/11/22 10:42 BMI result Body Mass Index 32.8 Const: Other: Constitutional: Alert, in no distress. Oriented Mental Status: Oriented to person, place and time. Eyes: Pupils are equal, round and reactive to light. Ear, Nose and Throat: Oropharynx clear, mucous membranes moist. Ears and nose without eformities. Respiratory: Clear to auscultation. No wheezing, rales or rhonchi. Cardiovascular: S1 S2 regular. No murmurs, rubs or gallops. Gastrointestinal: Abdomen soft, non-tender, non-distended. Normal bowel sounds.? Neurologic: Cranial nerves II-XII grossly intact. No focal neurological deficits. Moves all extremities spontaneously.? Skin: No rashes or lesions.? Musculoskeletal: No cyanosis or clubbing. Psychiatric: Normal mood and affect? Results Labs 03/11/22 11:15 03/11/22 11:15 Labs: Laboratory Results - last 24 hr 03/11/22 03/11/22 03/11/22 11:15 11:15 11:15 MCV 86.3 MCH 28.0 MCHC 32.5 RDW 13.2 Plt Count 264 D MPV 9.6 Immature Gran % (Auto) 0.2 Neut % (Auto) 73.3 H Lymph % (Auto) 17.3 L [place] % (Auto) 8.4 Eos % (Auto) 0.5 Baso % (Auto) 0.3 Lymph # (Auto) 1.0 L [place] # (Auto) 0.5 Eos # (Auto) 0.0 Baso # (Auto) 0.0 Abs Immat Gran (auto) 0.01 Absolute Neuts (auto) 4.2 Absolute Nucleated RBC 0.000 Nucleated RBC % (auto) 0.0 Anion Gap 13 Estim Creat Clear Calc 49.3 Estimated GFR 59 Random Glucose 144 H Calcium 9.2 Total Bilirubin 0.4 Direct Bilirubin < 0.2 AST 18 ALT 13 Alkaline Phosphatase 84 Total Protein 6.6 Albumin 3.7 COVID-19 (LELIA) Positive A COVID-19 Clin Com See Note Imaging Radiologist's Impressions: Impressions Chest X-Ray 03/11/22 11:45 IMPRESSION: No acute intrathoracic disease. Assessment and Plan (1) COVID: Status: Acute (2) Syncope: Status: Acute (3) Paroxysmal atrial fibrillation: Status: Acute (4) Hypertension: Status: Acute Plan 71/F wih AFIB non on anticoagulation,HTN who presents with episodes of unrepsonsive described as been stiff like a person for 3 minutes. DDx syncope, stroke, cardiac event. + positve covid no symptoms. No ischemic changes on ECG Plan: Head CT, cardiac monitoring, consider Neuro eval, might need MRI for as next step, sounds like seizure. Continue meds for HTN, HLD. Covid assymptomtic no steroid or remdesevir needed Time Spent With Patient Time: Total time managing care of this patient today ____ minutes. Quality Stroke Does the patient have a stroke diagnosis?: No VTE Prior VTE?: No VTE Risk Level:: Medical - moderate - high VTE Device Contraindication: Treatment Not Indicated VTE Drug Contraindication: N/A - Med Ordered
[2022-03-11 16:45] VITALS: BP 152/74; PULSE 72; RESP 16; TEMP 36.2; O2SAT 98
[2022-03-11] MEDS: Dextrose 5 % and 0.45 % NaCl 1,000 ML 100 ML IVCONT (17:50)
[2022-03-11] MEDS: Enoxaparin Sodium 40 MG/0.4 ML SYRINGE SUBCUT (17:51)
[2022-03-11 18:44] VITALS: BP 178/77; PULSE 80; RESP 18; TEMP 37.1; O2SAT 93
[2022-03-11] MEDS: 0.9 % Sodium Chloride Flush 3 ML SYRINGE IVFLUSH (19:36)
[2022-03-11] MEDS: Acetaminophen 325 MG TABLET 650 MG PO (19:47)
[2022-03-12] VITALS: BP 131/61; PULSE 79; RESP 20; TEMP 36.6; O2SAT 97
[2022-03-12] MEDS: Dextrose 5 % and 0.45 % NaCl 1,000 ML 100 ML IVCONT (06:27)
[2022-03-12 08:00] VITALS: BP 135/64; PULSE 80; RESP 18; TEMP 36.9; O2SAT 97
[2022-03-12] MEDS: Aspirin Enteric Coated 81 MG TABLET.DR PO (08:33)
[2022-03-12] MEDS: Metoprolol Succinate ER 50 MG TAB.ER.24H PO (08:33)
--- NOTE | 2022-03-12 09:59 | PM.NEUROCN ---
History of Present Illness Data of Consult Service Date: 03/12/22 Primary Care Provider: Benito Munroe MD [facility] Reason for consult: Syncope 71/F with HTN, AFIB who was sitting in chair and her daughter stated she became stiff (like a person), her eyes froze, no movment, she didn't colapse, her speech was not slurred, the episode came on all of [place], daughter thought she had a heart attack and the episode lasted 3 minutes.? When I asked her why she was in the hospital, she stated that she had a headache and was suffering from COVID. She did not remember or reported any episode of passing out. She was asking me when she could leave and go home. There was no sign of distress. Review of Systems Review of Systems: No previous history of seizure disorder PMFSH Past Medical History Medical History Afib Hypertension Paroxysmal atrial fibrillation Family History Family History Father No problems noted. Mother No problems noted. Surgical History Surgical History History of sinus surgery Social History Social History Alcohol intake: never Patient Tobacco Use Status: Never used Tobacco Smoked in Last 30 Days: No Second Hand Smoke Exposure: No Use of substances other than those prescribed or required for medical reasons: No Advance Directives: No Advance Directives Information Provided: No Meds Allergies Allergy/AdvReac Type Severity Reaction Status Date / Time amoxicillin [AMOXICILLIN] Allergy Intermediate RASH Verified 10/24/20 08:15 egg [Egg] Allergy Mild SWELLING Verified 10/24/20 08:15 OF FACE, ITCHY eggplant [EGGPLANT] Allergy Mild PUFFY Verified 10/24/20 08:15 FACE, ITCHY milk [MILK] Allergy Mild SWELLING Verified 10/24/20 08:15 OF FACE, ITCHY tomato [Tomato] Allergy Mild SWELLING Verified 10/24/20 08:15 avocado [AVOCADO] Allergy Unknown SWEELING, Verified 10/24/20 08:15 ITCHY nut - unspecified [nut] Allergy Unknown SWELLING Verified 10/24/20 08:15 OF FACE,ITCHY Seafood Allergy Unknown SWELLING Uncoded 10/24/20 08:15 Active Medications: Current Medications Acetaminophen (Acetaminophen 325 Mg Tablet) 650 mg PO Q6H PRN PRN Reason: Pain, Mild (Pain Scale 1-3) Last Admin: 03/11/22 19:47 Dose: 650 mg Aspirin (Aspirin Enteric Coated 81 Mg Tablet.) 81 mg PO DAILY [facility] Last Admin: 03/12/22 08:33 Dose: 81 mg Enoxaparin Sodium (Enoxaparin Sodium 40 Mg/0.4 Ml Syringe) 40 mg SUBCUT Q24H [facility] Last Admin: 03/11/22 17:51 Dose: 40 mg Dextrose/Sodium Chloride (D51/2ns) 1,000 mls @ 100 mls/hr IVCONT .Q10H [facility] Last Admin: 03/12/22 06:27 Dose: 100 mls/hr Melatonin (Melatonin 3 Mg Tablet) 3 mg PO BEDTIME PRN PRN Reason: Insomnia Metoprolol Succinate (Metoprolol Succinate Er 50 Mg Tab.Er.24h) 50 mg PO DAILY [facility]; Protocol Last Admin: 03/12/22 08:33 Dose: 50 mg Pharmacy Consult (Consult Rx Perform Med Rec) 1 each MISCELLANE ONCE PRN PRN Reason: Consult order Sodium Chloride (0.9 % Sodium Chloride Flush 3 Ml Syringe) 3 ml IVFLUSH QSHIFT [facility] Last Admin: 03/12/22 08:35 Dose: Not Given Home Medications Medication Instructions Recorded Confirmed Last Taken Type aspirin 81 mg tablet,delayed 81 mg PO DAILY 09/21/21 03/11/22 03/10/22 History release (Adult Low Dose Aspirin) omega-3 fatty acids 1,000 mg 1,000 mg PO DAILY 03/11/22 03/11/22 03/10/22 History capsule Physical Exam Vital Signs: Vital Signs: Last Vital Signs Temp 98.4 F 03/12/22 08:00 Pulse 80 03/12/22 08:00 Resp 18 03/12/22 08:00 BP 135/64 03/12/22 08:00 Pulse Ox 97 03/12/22 08:00 O2 Del Method 03/12/22 08:00 BMI result Body Mass Index 32.8 Neuro: Other: She was alert and awake with normal spontaneity of speech fluency comprehension and affect. Face was symmetrical. Visual matthews are full. There was no focal weakness. Deep tendon reflexes were 2+ with flexor plantars. Speech was normal. Results Labs 03/11/22 11:15 03/11/22 11:15 Labs: Short CBC 03/11/22 Range/Units 11:15 WBC 5.7 (4.8-10.8) X10*3/uL Hgb 12.5 (12.0-16.0) g/dl Hct 38.5 (37.0-47.0) % Plt Count 264 D (160-400) X10*3/uL BMP 03/11/22 11:15 Sodium 139 Potassium 4.1 Chloride 106 Carbon Dioxide 24 BUN 17 H Creatinine 0.94 Calcium 9.2 Liver Function 03/11/22 Range/Units 11:15 Total Bilirubin 0.4 (0.0-1.0) mg/dL Direct Bilirubin < 0.2 (0.0-0.5) mg/dL AST 18 (5-31) U/L ALT 13 (0-31) U/L Alkaline Phosphatase 84 (39-117) U/L Albumin 3.7 (3.5-5.0) g/dL Noncontrast head CT revealed moderately severe hypodense signal abnormality suggestive microvascular ischemic changes. 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 She was also diagnosed with COVID. At this time my recommendation is to have appropriate treatment of COVID and follow-up in our office in 2-3 weeks time for further evaluation of seizure disorder. He should not drive and not be involved in any activity that could put her life in danger such as swimming alone or sitting in a soaking tub alone. Time Spent With Patient Time: Total time managing care of this patient today ____ minutes. Procedures Date of Service Date of Service: 03/12/22
[2022-03-12 11:12] VITALS: BP 140/69; PULSE 70; RESP 17; TEMP 37; O2SAT 95
--- NOTE | 2022-03-12 11:49 | P.DS_ITS ---
DS: Providers Provider Date of Service: 03/12/22 Date of admission: 03/11/22 16:43 Primary care physician: Benito Munroe MD Consults: 03/12/22 07:33 Consult to Neurology Routine Consulting Provider: [facility] Reason for consultation: syncope concern for stroke Has provider been notified: No DS: Diagnosis Discharge Diagnosis (1) COVID: Status: Acute (2) Syncope: Status: Acute (3) Paroxysmal atrial fibrillation: Status: Acute (4) Hypertension: Status: Acute DS: Summary Hospital Course Hospital Course: 71/F with HTN, AFIB (declined blood thiners) who was sitting in chair and her daughter stated she became stiff (like a person), her eyes froze, no movment, she didn't colapse, her speech was not slurred, the episode came on all of [place], daughter thought she had a heart attack and the episode lasted 3 minutes. Once alert, was grogy, no urinary or stool incontinence, no tongue bite. She has been sick and tested positive for covid at home (she's vaccinated +1 booster) Hospital course: Patient was admitted overnight and monitor on telemetry and did not witness to have any arrhythmia, she did not had any further episode. Her neurological exam remained intact. She was evaluated by Dr. Lopez (neurologist go) and recommend further testing on outpatient basis with a concern for seizure. She is advised not to drive. As for COVID she is asymptomatic and does not need any specific treatment and should follow standard CDC isolation guideline. Time Spent with Patient Time attestation: Total time managing care of this patient today ____ minutes. Discharge coordination time: Greater than 30 minutes Quality: Safe Use of Opioids Does Pt have an Active Cancer Diagnosis on the Problem List?: No Quality: Stroke Does the patient have a stroke diagnosis?: No Physical Exam Vital Signs: Vital Signs: Last Vital Signs Temp 98.6 F 03/12/22 11:12 Pulse 70 03/12/22 11:12 Resp 17 03/12/22 11:12 BP 140/69 H 03/12/22 11:12 Pulse Ox 95 03/12/22 11:12 O2 Del Method 03/12/22 11:12 BMI result Body Mass Index 32.8 Const: Other: General: AO X 3, no acute distress Resp: CTA bilateral CVS: S1,S2,RRR GI: +BS, NT, no distention Skin: No rash Neuro: motor grossly intact Psych: appropriate affect DS: Data Data Completed and Pending Labs on day of discharge: Laboratory Results - last 24 hr 03/11/22 03/11/22 03/11/22 11:15 11:15 11:15 WBC 5.7 RBC 4.46 Hgb 12.5 Hct 38.5 MCV 86.3 MCH 28.0 MCHC 32.5 RDW 13.2 Plt Count 264 D MPV 9.6 Immature Gran % (Auto) 0.2 Neut % (Auto) 73.3 H Lymph % (Auto) 17.3 L [place] % (Auto) 8.4 Eos % (Auto) 0.5 Baso % (Auto) 0.3 Lymph # (Auto) 1.0 L [place] # (Auto) 0.5 Eos # (Auto) 0.0 Baso # (Auto) 0.0 Abs Immat Gran (auto) 0.01 Absolute Neuts (auto) 4.2 Absolute Nucleated RBC 0.000 Nucleated RBC % (auto) 0.0 Sodium 139 Potassium 4.1 Chloride 106 Carbon Dioxide 24 Anion Gap 13 BUN 17 H Creatinine 0.94 Estim Creat Clear Calc 49.3 Estimated GFR 59 Random Glucose 144 H Calcium 9.2 Total Bilirubin 0.4 Direct Bilirubin < 0.2 AST 18 ALT 13 Alkaline Phosphatase 84 Total Protein 6.6 Albumin 3.7 COVID-19 (LELIA) Positive A COVID-19 Clin Com See Note Discharge Plan Discharge Patient Disposition: Home, Self-Care Discharge Diagnosis: Syncope ? seizure Referrals: Benito Munroe MD [Primary Care Provider] - 1 Week Discharge Medications: Continued metoprolol succinate 50 mg tablet extended release 24 hr 50 mg PO DAILY 90 Days Qty: 90 3RF omega-3 fatty acids 1,000 mg Capsule 1,000 mg PO DAILY aspirin [Adult Low Dose Aspirin] 81 mg tablet,delayed release (DR/EC) 81 mg PO DAILY Diet: Advance to usual diet Activity on Discharge: As tolerated Stand Alone Forms: Patient Portal Discharge page Care Plan Goals: Full recovery and further work up of syncpe Health Concerns: Sycnoep and concern for seizure Plan of Treatment: Follow up with Dr. Lopez in 2 weeks Don't grive Assessment: as above
--- NOTE | 2022-03-12 12:27 | MHC.CM.PN ---
pt obs spoke with pts dgter who lives below pt pt has been indepedent is ani grady and ani holliday pt has own ride home
--- NOTE | 2022-03-12 15:50 | MHC.CM.PN ---
Patient is discharged to home self care. Patient has arranged for transport home.
== END 2022-03-12 16:38 | disposition home or self-care (01) ==
LOC: HO.ED 13:39 → HO.EDOVER 16:52 → HO.IMC 16:55
PROVIDERS: Admitting Provider Internal Medicine; Emergency Provider Student in an Organized Health Care Education/Training Program; PCP Internal Medicine; Visit Provider Internal Medicine
DX: U07.1 COVID-19 (principal); R55 Syncope and collapse; I48.0 Paroxysmal atrial fibrillation; I10 Essential (primary) hypertension
CPT/HCPCS: 70450; 71045; 80048; 80076; 85025; 87635; 93005; 96361; 96365; 96366; 96372; 99222; 99285; J1650

== ENCOUNTER 2022-03-30 10:30 | Outpatient (REF) | payer MEDICARE, SELFPAY | END 2022-03-30 10:31 | disposition home or self-care (01) | LOC: HO.LAB 10:30 | PROVIDERS: PCP Internal Medicine; Visit Provider Internal Medicine Cardiovascular Disease | DX: I48.0 Paroxysmal atrial fibrillation (principal); I10 Essential (primary) hypertension | CPT/HCPCS: 36415; 80048; 99212 ==

== ENCOUNTER 2022-04-09 12:50 | Outpatient (REF) | payer MEDICARE, SELFPAY ==
[2022-04-09 14:38] LABS: Anion Gap 16 (12-20); Blood Urea Nitrogen 23 mg/dL (9-16); Calcium 9.8 mg/dL (8.4-10.2); Carbon Dioxide 25 mmol/L (22-29); Chloride 105 mmol/L (96-108); Estimated Glomerular Filt Rate > 60; Glucose Random 103 mg/dL (60-115); Potassium 4.6 mmol/L (3.3-5.1); Sodium 141 mmol/L (135-145)
== END 2022-04-09 12:51 | disposition home or self-care (01) ==
LOC: HO.LAB 12:50
PROVIDERS: PCP Internal Medicine; Visit Provider Internal Medicine Cardiovascular Disease
DX: I48.0 Paroxysmal atrial fibrillation (principal)
CPT/HCPCS: 36415; 80048

== ENCOUNTER 2022-09-24 07:56 | Outpatient (REF) | payer MEDICARE, SELFPAY ==
[2022-09-24 09:36] LABS: Anion Gap 12 (12-20); Blood Urea Nitrogen 25 mg/dL (9-16); Calcium 9.8 mg/dL (8.4-10.2); Carbon Dioxide 26 mmol/L (22-29); Chloride 106 mmol/L (96-108); Estimated Glomerular Filt Rate > 60; Glucose Random 107 mg/dL (60-115); Sodium 140 mmol/L (135-145)
== END 2022-09-24 07:57 | disposition home or self-care (01) ==
LOC: HO.LAB 07:56
PROVIDERS: PCP Internal Medicine; Visit Provider Internal Medicine Cardiovascular Disease
DX: I48.0 Paroxysmal atrial fibrillation (principal)
CPT/HCPCS: 36415; 80048

== ENCOUNTER 2022-12-13 18:58 | Emergency (ER) | payer MEDICARE, SELFPAY ==
--- NOTE | 2022-12-13 19:11 | ED.GENADULT ---
HPI - General Adult General Chief complaint: Dental/Oral Stated complaint: mouth surgery earlier / bleeding nonstop Time Seen by Provider: 12/13/22 19:13 Source: patient and family Mode of arrival: ambulatory Limitations: no limitations History of Present Illness HPI narrative: Patient on Eliquis for paroxysmal AFib apparently had family was unaware that patient taking Eliquis and she took her today's dose at 08:00 and had the dental extraction at 14:00 since then patient has been losing unable to stop bleeding no other bleeding from any other source Related Data Home Medications Medication Instructions Recorded Confirmed omega-3 fatty acids 1,000 mg 1,000 mg PO DAILY 03/11/22 03/30/22 capsule Previous Rx's Medication Instructions Recorded apixaban 5 mg tablet (Eliquis) 5 mg PO BID #60 tabs 04/09/22 metoprolol succinate 50 mg 50 mg PO DAILY 90 days #90 tabs 04/21/22 tablet,extended release 24 hr Allergies Allergy/AdvReac Type Severity Reaction Status Date / Time amoxicillin [AMOXICILLIN] Allergy Intermediate RASH Verified 10/24/20 08:15 egg [Egg] Allergy Mild SWELLING Verified 10/24/20 08:15 OF FACE, ITCHY eggplant [EGGPLANT] Allergy Mild PUFFY Verified 10/24/20 08:15 FACE, ITCHY milk [MILK] Allergy Mild SWELLING Verified 10/24/20 08:15 OF FACE, ITCHY tomato [Tomato] Allergy Mild SWELLING Verified 10/24/20 08:15 avocado [AVOCADO] Allergy Unknown SWEELING, Verified 10/24/20 08:15 ITCHY nut - unspecified [nut] Allergy Unknown SWELLING Verified 10/24/20 08:15 OF FACE,ITCHY Seafood Allergy Unknown SWELLING Uncoded 10/24/20 08:15 Review of Systems Review of Systems: Yes all other systems are reviewed and are negative PMFSH Past Medical History Medical History Paroxysmal atrial fibrillation Afib Hypertension Surgical History History of sinus surgery Family History Family History Father No problems noted. Mother No problems noted. Social History Social History Alcohol intake: never Patient Tobacco Use Status: Never used Tobacco Smoked in Last 30 Days: No Second Hand Smoke Exposure: No Use of substances other than those prescribed or required for medical reasons: No Advance Directives: No Advance Directives Information Provided: No service: No Physical Exam ED Vital Signs: Vital Signs - 24 hr 12/13/22 19:13 12/13/22 20:53 Temperature 98.1 F 98.2 F Pulse Rate 103 H 92 Respiratory Rate 18 17 Blood Pressure 192/118 H 178/93 H Pulse Oximetry 95 97 Oxygen Delivery Method Room Air Room Air BMI result Body Mass Index 31.2 Appearance: Alert. Oriented X3. No acute distress. Eyes: PERRLA, No Nystagmus ENT: Pharynx normal. Oral Mucosa moist oozing from base of right upper 1st premolar at the site of extraction tooth number 5 Neck: Normal inspection. Neck supple. CVS: Normal heart rate and rhythm. Pulses normal. Respiratory: No respiratory distress. Equal air entry bilateral, no wheezing/rales/rhonchi Abdomen: Soft and nontender. Bowel sounds are present, no mass palpable, no CVA tenderness Skin: Skin warm and dry. Normal skin color. Normal skin turgor. Extremities: No lower extremity edema. No calf tenderness Neuro: Oriented X 3. [facility] Teeth image: 1. Oozing from the gum of Extracted right upper premolar Course Course Course Narrative: RME performed by Emma Valverde PA-C. Patient is a 72 year old assigned female at presenting to the emergency department with bleeding of the mouth. Patient had dental surgery earlier today and nobody knew she was on a blood thinner. Profusely bleeding for 4hours. Medications Administered Discontinued Medications Generic Name Dose Route Start Last Admin Trade Name Freq PRN Reason Stop Dose Admin Acetaminophen 650 mg 12/13/22 22:07 12/13/22 22:12 Acetaminophen Oral Liquid 650 Mg/20.3 Ml Solution PO 12/13/22 22:08 650 mg ONCE ONE Administration Tranexamic Acid 500 mg 12/13/22 19:39 12/13/22 22:04 Tranexamic Acid 1,000 Mg/10 Ml Vial INTRANASAL 12/13/22 19:40 500 mg ONCE ONE Administration Medical Decision Making Medical Decision Making [facility] Narrative: Patient status post dental extraction on Eliquis she took her Eliquis in the morning which she is not supposed to take it before tooth extraction, came here with oozing from the dental extraction site. TXA was applied and Surgicel applied tea bag also applied with good results bleeding stopped discharge patient home Differential Diagnosis Differential Diagnoses: The differential diagnosis associated with the presentation includes Bleeding postop Discharge Plan Discharge Clinical Impression: Bleeding gums Patient Disposition: Home, Self-Care Additional Instructions: Local care as adv Have cold liquids only until gets better Hold Eliquis in a.m. Start Eliquis tomorrow p.m. if no bleeding Follow-up with dentist Prescriptions: No Action Eliquis 5 mg tablet 5 mg PO BID Qty: 60 11RF metoprolol succinate 50 mg tablet extended release 24 hr 50 mg PO DAILY 90 Days Qty: 90 3RF omega-3 fatty acids 1,000 mg Capsule 1,000 mg PO DAILY Discharge Date/Time: 12/13/22 22:38
[2022-12-13 19:13] VITALS: BP 192/118; PULSE 103; RESP 18; TEMP 36.7; O2SAT 95; BMI 31.2
[2022-12-13 20:53] VITALS: BP 178/93; PULSE 92; RESP 17; TEMP 36.8; O2SAT 97
--- NOTE | 2022-12-13 22:37 | PC.NURSE ---
pt active bleeding observed at d/c
== END 2022-12-13 22:38 | disposition home or self-care (01) ==
PROVIDERS: Emergency Provider Internal Medicine; PCP Internal Medicine
DX: K06.9 Disorder of gingiva and edentulous alveolar ridge, unspecified (principal); I48.91 Unspecified atrial fibrillation; Z79.01 Long term (current) use of anticoagulants; Z79.899 Other long term (current) drug therapy
CPT/HCPCS: 99283; 99284

== ENCOUNTER → 2023-03-23 10:49 | Outpatient (REF) | payer MEDICARE, SELFPAY ==
--- NOTE | 2023-03-23 10:56 | CA_ITS ---
Transthoracic Echocardiogram Patient (Last, First, Middle): Miladis Reddy, Gender: Female Date of : 1950 Age: 72 Procedure Date: 03/23/2023 Procedure Type: Transthoracic Echocardiogram Location: OP Height: 147.32 cm Weight: 77.57 kg BSA: 1.70 m2 Heart Rate: bpm BP: 176 / 100 mmHg [employer] Business Analyst: LIDIA Referring MD: Gabe Dahl MD Symptoms: I48.0 - Paroxysmal atrial fibrillation Study Quality: Fair ECG Rhythm: Atrial Fibrillation Conclusions: - The left ventricular systolic function is normal. The calculated ejection fraction is 56% by biplane method. - Moderate biatrial enlargement. - There is mild calcification of the aortic valve. - There is mild to moderate mitral valve regurgitation. - There is mild to moderate tricuspid valve regurgitation. - Mild pulmonary hypertension is present. Findings Left Ventricle Normal left ventricular cavity size. There is normal left ventricular wall thickness. The left ventricular systolic function is normal. The calculated ejection fraction is 56% by biplane method. There is no evidence of regional wall motion abnormalities. Diastolic function is indeterminate on the basis of available data. Right Ventricle Normal right ventricular cavity size. There is mildly decreased right ventricular systolic function. Atria Moderate biatrial enlargement. Aortic Valve There is a normal trileaflet aortic valve. There is mild calcification of the aortic valve. There is no aortic valve stenosis. There is trace (trivial) aortic valve regurgitation. Mitral Valve The mitral valve appears normal. There is mild to moderate mitral valve regurgitation. There is no mitral valve stenosis. Pulmonic Valve The pulmonic valve is likely normal. There is trace pulmonic valve regurgitation. Tricuspid Valve There is mild to moderate tricuspid valve regurgitation. Mild pulmonary hypertension is present. Great Vessels The asc aorta is normal in size. Small plaque is seen in the sino tubular ridge. Venous The inferior vena cava is mildly dilated and collapses greater than 50% with inspiration. Pericardium/Pleural There is no evidence of pericardial effusion. Prior Study Comparison Changes noted compared to prior study dated: 04/25/2020. Progression of valvular abnormalities. Measurements 2D Linear Measurements IVSd: 0.92 0.6-0.9/0.6-1.0 cm LVIDd: 4.14 3.9-5.3/4.2-5.9 cm LVIDd Index: 2.44 2.4-3.2/2.2-3.1 cm/m2 LVIDs: 2.82 2.0-3.6 cm LVPWd: 0.97 0.7-1.1 cm LA Diam: 4.00 2.7-3.8/3.0-4.0 cm LAIDs Index: 2.35 1.5-2.3 cm/m2 LV Mass: 154.00 67-162/88-224 g LV Mass Index: 90.59 43-95/49-115 g/m2 LVOT Diam: 2.00 3.0+(-)1.3 cm 2D Systolic Function EF 4C: 57.90 >55% EF 2C: 59.50 >55% EF BiP: 56.40 >55% Mitral Valve MV Pk E: 0.80 MV Decel Time: 251.00 E'Lateral: 10.60 E'Medial: 6.01 E/E' Med: 13.30 E/E' Lat: 7.60 PHT: 74.00 MVA PHT: 2.97 Decel [place]: 3.21 Aortic Valve AoV Pk Froylan: 1.07 AoV Pk Grad: 5.00 LVOT LVOT Pk Froylan: 0.67 LVOT Pk Grad: 2.00 LVOT Diam: 2.00 LVOT Area: 3.14 Diastolic Function MV Pk E: 0.80 E'Medial: 6.01 E/E' Med: 13.30 E' Laterial: 10.60 E/E' Lat: 7.60 Right Ventricle TAPSE (mm): 17.70 TVS' Froylan: 7.27 Tricuspid Valve TR Pk Froylan: 2.94 TR Pk Grad: 35.00 RA Press: 8.00 RVSP: 43.00 Great Vessels Aorta Sinus of Valsalva: 2.93 2.0-3.[address] [place]: 2.23 1.7-3.4 cm Ao Asc: 3.30 2.1-3.4 cm Updated in Other Vendor System with Status of Final Marques Bowden MD electronically signed on 03/25/2023 1:48:23 PM with status of Final
== END ==
LOC: HO.CARD 10:49
PROVIDERS: PCP Internal Medicine; Visit Provider Internal Medicine Cardiovascular Disease
DX: I48.0 Paroxysmal atrial fibrillation (principal)
CPT/HCPCS: 93306

== ENCOUNTER → 2023-03-23 10:56 | Outpatient (BNV) | payer MEDICARE, SELFPAY | PROVIDERS: PCP Internal Medicine; Visit Provider Internal Medicine | DX: I34.0 Nonrheumatic mitral (valve) insufficiency (principal); I36.1 Nonrheumatic tricuspid (valve) insufficiency; I48.0 Paroxysmal atrial fibrillation | CPT/HCPCS: 93306 ==

== ENCOUNTER 2023-03-28 13:32 | Outpatient (AMB) | payer MEDICARE, SELFPAY ==
[2023-03-28 14:10] VITALS: BP 160/90; PULSE 74; BMI 31.4
--- NOTE | 2023-03-28 14:10 | MHC.OFFVIS ---
Intake Vital Signs 03/28/23 14:10 Height 5 ft 1 in Weight 166 lb 3.657 oz BMI 31.4 BP 160/90 H Blood Pressure Location Lt brachial Position Sitting Pulse 74 Pulse Source Pulse Oximeter Intake Visit Reasons: f/u after echo General Counsel Required: No Tissue Specialist: Tissue Specialist Present Accompanied by: Daughter Allergies amoxicillin [AMOXICILLIN] Allergy (Intermediate, Verified 03/28/23 14:14) RASH egg [Egg] Allergy (Mild, Verified 03/28/23 14:14) SWELLING OF FACE, ITCHY eggplant [EGGPLANT] Allergy (Mild, Verified 03/28/23 14:14) PUFFY FACE, ITCHY milk [MILK] Allergy (Mild, Verified 03/28/23 14:14) SWELLING OF FACE, ITCHY tomato [Tomato] Allergy (Mild, Verified 03/28/23 14:14) SWELLING avocado [AVOCADO] Allergy (Unknown, Verified 03/28/23 14:14) SWEELING, ITCHY nut - unspecified [nut] Allergy (Unknown, Verified 03/28/23 14:14) SWELLING OF FACE,ITCHY Seafood Allergy (Unknown, Uncoded 10/24/20 08:15) SWELLING Medication List - Last Reconciled 03/28/23 by Rocio Grossman NP-C apixaban (Eliquis) 5 mg PO BID 90 days metoprolol succinate ER 75 mg (1.5 x 50 mg) PO DAILY 90 days omega-3 fatty acids 1,000 mg PO DAILY HPI f/u after echo HPI Details Carlos Campos is a 73-year-old female with past medical history hypertension, paroxysmal atrial fibrillation who presents for follow-up. Today she reports that she has been feeling some heart palpitations lasting only a few minutes but occurring approximately twice weekly. No sustained rapid or irregular rates. No chest discomfort at rest or with activity. No shortness of breath, PND, orthopnea or edema. No bleeding issues with Eliquis. Taking all meds as directed. Daughter is present. She is assisting with [place] Island[place] translation at their request. Permit signed. [facility] Medical History Paroxysmal atrial fibrillation Afib Hypertension Surgical History History of sinus surgery Family History Father No problems noted. Mother No problems noted. Social History Alcohol intake: never Patient Tobacco Use Status: Never used Tobacco Second Hand Smoke Exposure: No service: No Review of Systems Const All systems reviewed & are unremarkable except as noted in HPI and below ENT Denies dizziness Card Denies chest pain, Denies chest pain at rest, Denies chest pain with activity, Reports rapid heart rate, Denies pedal edema, Denies edema, Denies leg edema, Denies lightheadedness, Reports palpitations, Denies dyspnea, Denies dyspnea on exertion and Denies orthopnea Resp Denies cough, Denies dyspnea and Denies dyspnea on exertion GI Denies hematochezia and Denies change in stool character Musc Denies abnormal gait, Denies limited range of motion, Denies muscle cramps, Denies muscle weakness, Denies numbness, Denies radiating pain into limb, Denies stiffness and Denies tingling Neuro Denies abnormal gait, Denies dizziness, Denies numbness and Denies tingling Endo Reports palpitations Physical Exam Vital Signs: Last Vital Signs Pulse 74 03/28/23 14:10 BP 160/90 H 03/28/23 14:10 BMI result Body Mass Index 31.4 Const General: cooperative, healthy appearing, comfortable and no acute distress Orientation/consciousness: patient oriented x3 Neck Neck: Yes normal visual inspection and Yes no JVD Chest Chest palpation & inspection: normal inspection of the chest Resp Effort & Inspection: normal respiratory effort Auscultation: clear to auscultation bilaterally, no crackles, no rales, no rhonchi and no wheezes Cardio Jugular venous distension: no JVD Rate: regular rate Rhythm: regular rhythm Heart sounds: S1 normal heart sound present, S2 normal heart sound present, no murmurs and no rubs Neuro General: patient oriented x3 Extrem General: Yes normal to inspection, No no pedal edema and No calf tenderness Psych Appearance: grossly normal Mental Status: mental status grossly normal Speech and movement: Normal speech and movement present Assessment & Plan Assessment & Plan (1) Paroxysmal atrial fibrillation: Code(s): I48.0 - Paroxysmal atrial fibrillation Plan: History of paroxysmal atrial fibrillation. She does report some brief intermittent heart palpitations, occurring approximately twice weekly lasting seconds to minutes. Pulse is very regular today, no concern for AFib at this time. Her palpitations could be breakthrough AFib. Will increase her metoprolol XL up from 50 mg daily to 75 mg daily. Instructed to call this office if she continues to have episodes of heart palpitations. Further titration of metoprolol can be done and Holter monitor. She is on Eliquis for anticoagulation. No bleeding issues reported. Stroke risk with atrial fibrillation reviewed with her, daughter. Emergency care if ever needed for concerning symptoms. Cardiology follow-up 6 months, sooner if needed (2) Hypertension: Code(s): I10 - Essential (primary) hypertension Plan: Blood pressure elevated initially this visit. Recheck done by me 142/74. Will be increasing metoprolol dose as above. She follows with her PCP routinely. If blood pressure remains elevated then Alverto/Arb can be added. Forwarding this note to PCP as well Plan Time spent on chart review, documentation, interview and assessment Medications: Changed From apixaban (Eliquis) 5 mg PO BID 60 tabs 11RF I48.0 - Paroxysmal atrial fibrillation To apixaban (Eliquis) 5 mg PO BID 90 days 180 tabs 3RF I48.0 - Paroxysmal atrial fibrillation From metoprolol succinate ER 50 mg PO DAILY 90 days 90 tabs 3RF To metoprolol succinate ER 75 mg (1.5 x 50 mg) PO DAILY 90 days 135 tabs 3RF Coding Level of Care Code Est Pt Level 3 (29182) Diagnoses Paroxysmal atrial fibrillation I48.0 Hypertension I10 Time Spent (min) 24
== END 2023-03-28 14:44 | disposition home or self-care (01) ==
PROVIDERS: PCP Internal Medicine; Referring Provider Internal Medicine; Visit Provider Nurse Practitioner Family
DX: I48.0 Paroxysmal atrial fibrillation (principal); I10 Essential (primary) hypertension
CPT/HCPCS: 99213

== ENCOUNTER → 2023-03-28 13:32 | Outpatient (BNVA) | payer MEDICARE, SELFPAY | PROVIDERS: PCP Internal Medicine; Visit Provider Nurse Practitioner Family | DX: I48.0 Paroxysmal atrial fibrillation (principal); I10 Essential (primary) hypertension | CPT/HCPCS: 99212 ==

== ENCOUNTER 2023-09-26 09:53 | Outpatient (AMB) | payer MEDICARE, SELFPAY ==
[2023-09-26 09:57] VITALS: BP 152/80; PULSE 83; BMI 31.5
--- NOTE | 2023-09-26 09:57 | A.OFFVIS_ITS ---
Vital Signs 09/26/23 09:57 Height 5 ft 1 in Weight 166 lb 10.711 oz BMI 31.5 BP 152/80 H Blood Pressure Location Lt brachial Position Sitting Pulse 83 Pulse Source Pulse Oximeter Intake Visit Reasons: 7 mth f/up Student Life Advisor Required: No Electrical Maintenance Mechanic: Electrical Maintenance Mechanic Present Allergies amoxicillin [AMOXICILLIN] Allergy (Intermediate, Verified 09/26/23 09:59) RASH egg [Egg] Allergy (Mild, Verified 09/26/23 09:59) SWELLING OF FACE, ITCHY eggplant [EGGPLANT] Allergy (Mild, Verified 09/26/23 09:59) PUFFY FACE, ITCHY milk [MILK] Allergy (Mild, Verified 09/26/23 09:59) SWELLING OF FACE, ITCHY tomato [Tomato] Allergy (Mild, Verified 09/26/23 09:59) SWELLING avocado [AVOCADO] Allergy (Unknown, Verified 09/26/23 09:59) SWEELING, ITCHY nut - unspecified [nut] Allergy (Unknown, Verified 09/26/23 09:59) SWELLING OF FACE,ITCHY Seafood Allergy (Unknown, Uncoded 09/26/23 09:59) SWELLING Medication List - Last Reconciled 09/26/23 by LYNDON JohnsonC apixaban (Eliquis) 5 mg PO BID 90 days metoprolol succinate ER 75 mg (1.5 x 50 mg) PO DAILY 90 days omega-3 fatty acids 1,000 mg PO DAILY HPI HPI 7 mth f/up: Details: Miladis is a 73-year-old female with past medical history hypertension, paroxysmal atrial fibrillation who presents for follow-up. Today she reports that she has been feeling well since her last visit in March. She has not been noticing any heart palpitations. She does wear a smart watch which does tell her she is in atrial fibrillation some of the time. When it says it she just ignores it. She does not recall having symptoms at that moment. She tried the increase in metoprolol dose as suggested last visit and did not like how she felt. She went back to taking 50 mg once daily. No sustained rapid or irregular rates. No chest discomfort at rest or with activity. No shortness of breath, PND, orthopnea or edema. No bleeding issues with Eliquis. Taking all meds as directed. Daughter is present. She is assisting with Occitan translation at their request. Permit signed. [facility] Medical History Paroxysmal atrial fibrillation Afib Hypertension Surgical History History of sinus surgery Family History Father No problems noted. Mother No problems noted. Sister Breast cancer Skin cancer Social History Alcohol intake: never Patient Tobacco Use Status: Never used Tobacco Second Hand Smoke Exposure: No service: No Review of Systems Const All systems reviewed & are unremarkable except as noted in HPI and below ENT Denies dizziness Card Denies chest pain, Denies chest pain at rest, Denies chest pain with activity, Denies rapid heart rate, Denies pedal edema, Denies edema, Denies leg edema, D enies lightheadedness, Denies palpitations, Denies dyspnea, Denies dyspnea on exertion and Denies orthopnea Resp Denies cough, Denies dyspnea and Denies dyspnea on exertion GI Denies hematochezia and Denies change in stool character Musc Denies abnormal gait, Denies limited range of motion, Denies muscle cramps, Denies muscle weakness, Denies numbness, Denies radiating pain into limb, Denies stiffness and Denies tingling Neuro Denies abnormal gait, Denies dizziness, Denies numbness and Denies tingling Endo Denies palpitations Physical Exam Vital Signs: Last Vital Signs Pulse 83 09/26/23 09:57 BP 152/80 H 09/26/23 09:57 BMI result Body Mass Index 31.5 Const General: cooperative, healthy appearing, comfortable and no acute distress Orientation/consciousness: patient oriented x3 Neck Neck: Yes normal visual inspection and Yes no JVD Chest Chest palpation & inspection: normal inspection of the chest Resp Effort & Inspection: normal respiratory effort Auscultation: clear to auscultation bilaterally, no crackles, no rales, no rhonchi and no wheezes Cardio Jugular venous distension: no JVD Rate: regular rate Rhythm: regular rhythm Heart sounds: S1 normal heart sound present, S2 normal heart sound present, no murmurs and no rubs Neuro General: patient oriented x3 Extrem General: Yes normal to inspection, No no pedal edema and No calf tenderness Psych Appearance: grossly normal Mental Status: mental status grossly normal Speech and movement: Normal speech and movement present Assessment & Plan Assessment & Plan (1) Paroxysmal atrial fibrillation: Code(s): I48.0 - Paroxysmal atrial fibrillation Category: Medical Plan: History of paroxysmal atrial fibrillation. On last visit she reported some brief intermittent heart palpitations. We tried a increase in the metoprolol dose however she did not like how she felt. She is currently taking the metoprolol XL 50 mg daily. More recently she has not been bothered by heart palpitations. Her smart watch is telling are she has AFib at times. She does not recall symptoms when this occurs. Will check a Holter to assess for presence/frequency of AFib. She is on Eliquis for anticoagulation. No bleeding issues reported. Stroke risk with atrial fibrillation reviewed with her, daughter. Emergency care if ever needed for concerning symptoms. Plan to call her with Holter results. Cardiology follow-up 6 months, sooner if needed (2) Hypertension: Code(s): I10 - Essential (primary) hypertension Category: Medical Plan: Blood pressure elevated initially this visit. Recheck done by me 144/68. She is currently feeling quite well. She follows with her PCP routinely and says she has an upcoming visit. If blood pressure remains elevated then Alverto/Arb can be added. Forwarding this note to PCP as well Plan Time spent on chart review, documentation, interview and assessment Orders: Orders ECG 3 day holter monitor Today I48.0 - Paroxysmal atrial fibrillation Medications: New metoprolol succinate ER 50 mg PO DAILY 90 tabs 3RF Discontinued metoprolol succinate ER Discontinued Reason: Doctor's Order 75 mg (1.5 x 50 mg) PO DAILY 90 days 135 tabs 3RF Coding Level of Care Code Est Pt Level 4 (47731) Diagnoses Paroxysmal atrial fibrillation I48.0 Hypertension I10 Time Spent (min) 28
== END 2023-09-26 10:23 | disposition home or self-care (01) ==
PROVIDERS: PCP Internal Medicine; Visit Provider Nurse Practitioner Family
DX: I48.0 Paroxysmal atrial fibrillation (principal); I10 Essential (primary) hypertension
CPT/HCPCS: 99214

== ENCOUNTER → 2023-09-26 09:53 | Outpatient (BNVA) | payer MEDICARE, SELFPAY | PROVIDERS: PCP Internal Medicine; Visit Provider Nurse Practitioner Family | DX: I48.0 Paroxysmal atrial fibrillation (principal); I10 Essential (primary) hypertension | CPT/HCPCS: 99212 ==

== ENCOUNTER → 2023-10-10 08:35 | Outpatient (REF) | payer MEDICARE, SELFPAY ==
--- NOTE | 2023-10-10 08:38 | HM_ITS ---
Conclusion: 1. Patient was monitored for total period of 2 days and 12 hours 2. Baseline was atrial fibrillation with average heart of 80 beats per minute with good rate control 3. No significant pauses noted 4. Patient did not report any events MTDD
== END ==
LOC: HO.CARD 08:35
PROVIDERS: PCP Internal Medicine; Visit Provider Nurse Practitioner Family
DX: I48.0 Paroxysmal atrial fibrillation (principal)
CPT/HCPCS: 93242

== ENCOUNTER → 2023-10-10 08:38 | Outpatient (BNV) | payer MEDICARE, SELFPAY | PROVIDERS: PCP Internal Medicine; Visit Provider Internal Medicine Cardiovascular Disease | DX: I48.91 Unspecified atrial fibrillation (principal) | CPT/HCPCS: 93244 ==

== ENCOUNTER 2024-04-04 09:58 | Outpatient (REF) | payer MEDICARE, SELFPAY ==
--- NOTE | ~2024-04-04 | XR_ITS ---
EXAMINATION: XR FOOT, RIGHT CLINICAL INFORMATION: BIALTERAL FOOT PAIN COMPARISON: None available. TECHNIQUE: AP, lateral, and oblique views of the right foot. FINDINGS: The ankle mortise and subtalar joints are normal. No visible acute fracture, dislocation or subluxation seen. No bony erosive changes seen. The soft tissues are normal. XR/XR foot RT min 3V IMPRESSION: Unremarkable right foot exam. Electronically signed by: Richmond Wilson MD 04/04/2024 12:17 PM EST
--- NOTE | ~2024-04-04 | XR_ITS ---
EXAMINATION: XR FOOT, LEFT CLINICAL INFORMATION: BILATERAL FOOT PAIN COMPARISON: None available. TECHNIQUE: AP, lateral, and oblique views of the left foot. FINDINGS: The mortise and subtalar joints are normal. A small retrocalcaneal enthesophyte. No visible acute fracture or dislocation seen. The joint spaces are maintained normal without bony erosive changes. The soft tissues are normal. XR/XR foot LT min 3V IMPRESSION: Small retrocalcaneal enthesophyte. Otherwise unremarkable left foot exam. Electronically signed by: Richmond Wilson MD 04/04/2024 11:05 AM EST
== END 2024-04-04 09:59 | disposition home or self-care (01) ==
LOC: HO.XRAY 09:58
PROVIDERS: PCP Internal Medicine; Visit Provider Internal Medicine
DX: M79.671 Pain in right foot (principal); M79.672 Pain in left foot
CPT/HCPCS: 73630

== ENCOUNTER → 2024-04-04 10:07 | Outpatient (BNV) | payer MEDICARE, SELFPAY | PROVIDERS: PCP Internal Medicine; Visit Provider Radiology Diagnostic Radiology | DX: M77.32 Calcaneal spur, left foot (principal); M79.671 Pain in right foot | CPT/HCPCS: 73630 ==

== ENCOUNTER 2024-04-09 09:42 | Outpatient (AMB) | payer MEDICARE, SELFPAY ==
[2024-04-09 09:45] VITALS: BP 158/80; PULSE 81; BMI 30.2
--- NOTE | 2024-04-09 09:45 | MHC.OFFVIS ---
Vital Signs 04/09/24 09:45 Height 5 ft 1 in Weight 159 lb 9.835 oz BMI 30.2 BP 158/80 H Blood Pressure Location Lt brachial Position Sitting Pulse 81 Pulse Source Monitor Intake Visit Reasons: 6 mthf/up Director Digital Analytics Required: No Mending Carrier: Mending Carrier Present Allergies amoxicillin [AMOXICILLIN] Allergy (Intermediate, Verified 04/09/24 09:48) RASH egg [Egg] Allergy (Mild, Verified 04/09/24 09:48) SWELLING OF FACE, ITCHY eggplant [EGGPLANT] Allergy (Mild, Verified 04/09/24 09:48) PUFFY FACE, ITCHY milk [MILK] Allergy (Mild, Verified 04/09/24 09:48) SWELLING OF FACE, ITCHY tomato [Tomato] Allergy (Mild, Verified 04/09/24 09:48) SWELLING avocado [AVOCADO] Allergy (Unknown, Verified 04/09/24 09:48) SWEELING, ITCHY nut - unspecified [nut] Allergy (Unknown, Verified 04/09/24 09:48) SWELLING OF FACE,ITCHY Seafood Allergy (Unknown, Uncoded 04/09/24 09:48) SWELLING Medication List - Last Reconciled 04/09/24 by Rocio Grossman NP-C apixaban (Eliquis) 5 mg PO BID 90 days metoprolol succinate ER 50 mg PO DAILY omega-3 fatty acids 1,000 mg PO DAILY HPI HPI 6 mthf/up: Details: Miladis is a 74-year-old female with past medical history hypertension, paroxysmal atrial fibrillation who presents for follow-up. Today she reports that she has been feeling very well since her last visit in September. She recently lost her sister and has been emotionally upset. She has not been noticing any heart palpitations. No chest discomfort at rest or with activity. No shortness of breath, PND, orthopnea or edema. She had a tooth extracted on the Eliquis and had prolonged bleeding that required ER evaluation. No bleeding issues beyond that. She reports Taking all meds as directed. Daughter is present. She is assisting with Bulgarian translation at their request. [facility] Medical History Paroxysmal atrial fibrillation Afib Hypertension Surgical History History of sinus surgery Family History Father No problems noted. Mother No problems noted. Sister Breast cancer Skin cancer Social History Alcohol intake: never Patient Tobacco Use Status: Never used Tobacco Second Hand Smoke Exposure: No service: No Review of Systems Const All systems reviewed & are unremarkable except as noted in HPI and below ENT Denies dizziness Card Denies chest pain, Denies chest pain at rest, Denies chest pain with activity, Denies rapid heart rate, Denies pedal edema, Denies edema, Denies leg edema, Denies lightheadedness, Denies palpitations, Denies dyspnea, Denies dyspnea on exertion and Denies orthopnea Resp Denies cough, Denies dyspnea and Denies dyspnea on exertion GI Denies hematochezia and Denies change in stool character Musc Denies abnormal gait, Denies limited range of motion, Denies muscle cramps, Denies muscle weakness, Denies numbness, Denies radiating pain into limb, Denies stiffness and Denies tingling Neuro Denies abnormal gait, Denies dizziness, Denies numbness and Denies tingling Endo Denies palpitations Physical Exam Vital Signs: Last Vital Signs Pulse 81 04/09/24 09:45 BP 158/80 H 04/09/24 09:45 BMI result Body Mass Index 30.2 Const General: cooperative, healthy appearing, comfortable and no acute distress Orientation/consciousness: patient oriented x3 Neck Neck: Yes normal visual inspection and Yes no JVD Resp Effort & Inspection: normal respiratory effort Auscultation: clear to auscultation bilaterally, no rales, no rhonchi and no wheezes Cardio Rate: regular rate Rhythm: abnormal rhythm Heart sounds: S1 normal heart sound present, S2 normal heart sound present, no gallops, no murmurs and no rubs Neuro General: patient oriented x3 Extrem General: Yes normal to inspection, No no pedal edema and No calf tenderness Psych Appearance: grossly normal Mental Status: mental status grossly normal Speech and movement: Normal speech and movement present Office Procedures EKG Details: Today, read by me, atrial fibrillation, rate 81, QTC 401 milliseconds [id number], Complete Assessment & Plan Assessment & Plan (1) Paroxysmal atrial fibrillation: Code(s): I48.0 - Paroxysmal atrial fibrillation Category: Medical Plan: History of paroxysmal atrial fibrillation, with cardioversion in the past, 2020. She was previously reporting some heart palpitations. We did trial increase of metoprolol which she did not tolerate. She says she did not feel as well and went back to metoprolol XL 50 mg daily. Holter monitor done 10/10/2023 for 2-1/2 days showing atrial fibrillation, average rate 80. Last echo done 03/23/2023 showing EF 56%, moderate biatrial enlargement, mild calcification of the aortic valve, [id number] MR and TR. EKG done today is showing atrial fibrillation, rate 81. She likely has persistent atrial fibrillation. She reports feeling very well with no concerning symptoms. Had a long discussion with patient and daughter regarding rhythm control versus heart rate control. Discuss the use of antiarrhythmic therapy and repeat cardioversion. Patient states she does not want to take anymore pills and she is currently pleased with how she is feeling. She also is experiencing stress over the recent loss of her sister. They would prefer to continue just metoprolol and Eliquis at this time. Cardiology follow-up 3-4 months, sooner if needed. Plan to rediscuss rhythm control at that time. (2) Hypertension: Code(s): I10 - Essential (primary) hypertension Category: Medical Plan: Blood pressure elevated initially this visit. Recheck done by me 122/60. She is experiencing high stress recently. Reviewed low-salt diet. Will recheck blood pressure at next visit. Plan Time spent on chart review, documentation, interview and assessment Coding Level of Care Code Est Pt Level 4 (16434) Complex EM visit Add On G2211 Diagnoses Paroxysmal atrial fibrillation I48.0 Hypertension I10 CPT Codes EKG - CPT: [id number], Complete ([id number]) Time Spent (min) 36
== END 2024-04-09 10:21 | disposition home or self-care (01) ==
PROVIDERS: PCP Internal Medicine; Visit Provider Nurse Practitioner Family
DX: I48.0 Paroxysmal atrial fibrillation (principal); I10 Essential (primary) hypertension
CPT/HCPCS: 93010; 99214; G2211

== ENCOUNTER → 2024-04-09 09:42 | Outpatient (BNVA) | payer MEDICARE, SELFPAY | PROVIDERS: PCP Internal Medicine; Visit Provider Nurse Practitioner Family | DX: I48.0 Paroxysmal atrial fibrillation (principal); I10 Essential (primary) hypertension; R94.31 Abnormal electrocardiogram [ECG] [EKG] | CPT/HCPCS: 93005; 99212 ==

== ENCOUNTER 2024-06-20 11:07 | Outpatient (AMB) | payer MEDICARE, SELFPAY ==
[2024-06-20 11:08] VITALS: BP 136/80; PULSE 63; TEMP 36.2; O2SAT 98; BMI 30.8
--- NOTE | 2024-06-20 11:08 | A.OFFPC_ITS ---
Vital Signs 06/20/24 11:08 Height 5 ft 1 in Weight 163 lb BMI 30.8 BP 136/80 Blood Pressure Location Lt brachial Position Sitting Pulse 63 Pulse Source Pulse Oximeter Temp 97.1 F Temp Source Axillary Pulse Oximetry (%) 98 Oxygen Delivery Method Room Air Intake Visit Reasons: Spot on Face/ Routine Lighting Fixtures Decorator Required: Yes Lighting Fixtures Decorator Name: pt daughter Accompanied by: Daughter Allergies amoxicillin [AMOXICILLIN] Allergy (Intermediate, Verified 06/20/24 11:08) RASH egg [Egg] Allergy (Mild, Verified 06/20/24 11:08) SWELLING OF FACE, ITCHY eggplant [EGGPLANT] Allergy (Mild, Verified 06/20/24 11:08) PUFFY FACE, ITCHY milk [MILK] Allergy (Mild, Verified 06/20/24 11:08) SWELLING OF FACE, ITCHY tomato [Tomato] Allergy (Mild, Verified 06/20/24 11:08) SWELLING avocado [AVOCADO] Allergy (Unknown, Verified 06/20/24 11:08) SWEELING, ITCHY nut - unspecified [nut] Allergy (Unknown, Verified 06/20/24 11:08) SWELLING OF FACE,ITCHY Seafood Allergy (Unknown, Uncoded 06/20/24 11:08) SWELLING Tobacco use date assessed: 06/20/24 Fall risk assessment: No Falls in past year Last assessed Fall Risk: 06/20/24 Dental Screening Dental Screen Date: 06/20/24 Did you have a dental visit in the last 12 months?: Yes Did you have a dental problem in the last 6 months where you did not have access to dental care?: No [facility] Medical History (Updated 06/20/24 @ 11:35 by Elijah Bowers MD) Achilles tendinitis, left leg Paroxysmal atrial fibrillation Afib Hypertension Surgical History History of colonoscopy (~06/15/13) History of sinus surgery Family History Father No problems noted. Mother No problems noted. Sister Breast cancer Skin cancer Social History Housing: House Alcohol intake: never Patient Tobacco Use Status: Never used Tobacco e-Cigarette/Vaping Use: Never Used Second Hand Smoke Exposure: No service: No Current occupational status: retired Cognitive needs: No Hearing needs: No Vision needs: No Questionnaire PHQ-9 Over the last 2 weeks, how often have you been bothered by any of the following problems? 1. Little interest or pleasure in doing things: not at all 2. Feeling down, depressed, or hopeless: not at all 3. Trouble falling or staying asleep, or sleeping too much: not at all 4. Feeling tired or having little energy: not at all 5. Poor appetite or overeating: not at all 6. Feeling bad about yourself - or that you are a failure or have let yourself or your family down: not at all 7. Trouble concentrating on things, such as reading the newspaper or watching television: not at all 8. Moving or speaking so slowly that other people could have noticed. Or the opposite - being so fidgety or restless that you have been moving around a lot more than usual: not at all 9. Thoughts that you would be better off or of hurting yourself in some way: not at all Total score: 0 Source: Developed by Drs. Neeraj Quinones, Kamryn Hedrick, Anup Perry and colleagues, with an educational dio from [employer]. Thrive Questionnaire Date Thrive assessed: 06/20/24 I am a: Patient Within the past 12 months, did the food you bought not last and you didn't have the money to get more?: Never true Within the past 12 months, did you worry whether your food would run out before you got money to buy more?: Never true Do you have trouble paying for medicines?: No Do you have trouble getting transportation to medical appointments?: No Do you have trouble paying your heating and electricity bill?: No Do you have trouble taking care of your child, family member or friend?: No Do you have trouble with day-to-day activities such as bathing, preparing meals, shopping, managing finances, etc.?: No Are you currently unemployed and looking for a job?: No Are you interested in more education?: No THRIVE Score: 0 AUDIT C Alcohol Use Questionnaire (AUDIT-C) 1. How often do you have a drink containing alcohol?: Never 3. How often do you have six or more drinks on one occasion?: Never Total Score: 0 GERRY-7 AMB Questionnaire GERRY-7 Date GERRY - 7 assessed: 06/20/24 Feeling nervous, anxious, or on edge: 0 = Not at all Not being able to stop or control worryin = Not at all Worrying too much about different things: 0 = Not at all Trouble relaxin = Not at all Being so restless that it is hard to sit still: 0 = Not at all Becoming easily annoyed or irritable: 0 = Not at all Feeling afraid as if something awful might happen: 0 = Not at all Total GERRY-7 score (0-4 normal; 5-9 mild; 10-14 moderate; 15-21 severe): 0 Source: Developed by Drs. Neeraj Quinones, Kamryn Hedrick, Anup Perry and colleagues, with an educational dio from [employer]. Physical exam (Primary Care) Vital Signs: Last Vital Signs Temp 97.1 F 06/20/24 11:08 Pulse 63 06/20/24 11:08 BP 136/80 06/20/24 11:08 Pulse Ox 98 06/20/24 11:08 Oxygen Delivery Method Room Air 06/20/24 11:08 BMI result Body Mass Index 30.8 Tobacco/Smoking Status: Tobacco use Status Tobacco use date assessed 06/20/24 06/20/24 11:10 Patient Tobacco Use Status Never used Tobacco 06/20/24 11:10 e-Cigarette/Vaping Use Never Used 06/20/24 11:10 PHQ-9: PHQ-9 Score PHQ-9: Total score 0 06/20/24 11:18 Thrive Assessment: Date of Thrive Assessment Date Thrive assessed 06/20/24 06/20/24 11:10 Coding Level of Care Code New Pt Level 4 (78885) Complex EM visit Add On G2211 Diagnoses Achilles tendinitis, left leg M76.62 Assessment & Plan Assessment & Plan (1) Achilles tendinitis, left leg: Code(s): M76.62 - Achilles tendinitis, left leg Category: Medical Plan: Patient would benefit from a steroid injection. Appt made. Plan History of Present Illness The patient is a 74-year-old female presenting with concerns regarding an itchy facial skin lesion and pain in the Achilles tendon region. The facial skin condition has persisted for approximately one year, exhibiting intermittently with itching and discoloration. Protective measures against sun exposure, such as sunscreen application, were discussed given her preference for sun activities and ongoing use of a blood thinner, which increases bleeding risk. No prior i nvasive interventions have been performed due to potential scar formation. Regarding the foot pain, the patient has experienced increasing discomfort localized to the Achilles tendon area, exacerbated by walking and stair climbing, indicating an inflammatory process, such as tendinitis. Although an X- ray was conducted as part of a previous evaluation, further intervention had been pending until this visit, where consideration of a corticosteroid injection option was presented. Social History - Enjoys activities in the sun. - Current use of a blood thinner. Review of Systems - Skin: Reports intermittent facial itching and discoloration. - Musculoskeletal: Reports foot pain localized to the Achilles tendon; Denies other musculoskeletal complaints. Physical Exam General: Cooperative and healthy appearing Nutritional Appearance: Well nourished Orientation/consciousness: Patient oriented x3 Limitations: No limitations Head: Normal to inspection General: Appearance normal, both eyes and all related structures Neck: Normal visual inspection Chest: Normal palpation of entire chest wall Respiratory: Normal respiratory effort Neurology: Patient oriented x3 Results Plan In managing the itchy facial lesion, sunscreen usage was recommended to protect against sun exposure, while cortisone cream was advised for itching relief. Given the risk of bleeding and scarring, excision was discouraged. Concerning the Achilles tendinitis, corticosteroid injection will be arranged with local anesthesia to alleviate pain and improve mobility. Further screening for breast, and colorectal health will be undertaken due to overdue examinations. Patient was informed and verbally consented to the use of an ambient scribe for clinic note documentation during this visit. Discussion Notes I discussed with the patient the benign nature of the facial lesion and the rationale for non-removal due to potential bleeding and scarring. Protective sunscreen use and topical cortisone application were advised to manage symptoms. We considered a corticosteroid injection for the Achilles tendinitis given her persistent pain and mobility limitations, with the acknowledgment of pain during the procedure and the process of anesthetic locally before the injection. The need for scheduling was conveyed for safe administration. We also revisited the importance of updating overdue mammograms and colonoscopies to ensure comprehensive health maintenance. Patient Instructions - Use sunscreen on facial lesion when exposed to sunlight. - Apply cortisone cream for itching relief on facial lesion. - Avoid removing the lesion to prevent a scar or bleeding. - Await scheduling and attend appointment for Achilles tendon corticosteroid injection. - Schedule mammogram and colonoscopy due to overdue preventive screenings. - Seek medical attention if symptoms worsen or new concerns arise. Orders: Orders MM screening mammo BI Today Z12.31 - Encounter for screening mammogram for malignant neoplasm of breast Referrals Orthopedics Referral M76.62 - Achilles tendinitis, left leg Cologuard Test Z12.11 - Encounter for screening for malignant neoplasm of colon
== END 2024-06-20 11:37 | disposition home or self-care (01) ==
LOC: HO.HMCHD 11:07
PROVIDERS: PCP Internal Medicine; Visit Provider Internal Medicine
DX: M76.62 Achilles tendinitis, left leg (principal)

== ENCOUNTER → 2024-06-20 11:07 | Outpatient (BNVA) | payer MEDICARE, SELFPAY | PROVIDERS: PCP Internal Medicine; Visit Provider Internal Medicine | DX: M76.62 Achilles tendinitis, left leg (principal); L98.9 Disorder of the skin and subcutaneous tissue, unspecified | CPT/HCPCS: 96127; 99202 ==

== ENCOUNTER 2024-07-19 09:34 | Outpatient (AMB) | payer MEDICARE, SELFPAY ==
--- NOTE | 2024-07-19 10:08 | MHC.OFFVIS ---
Vital Signs 07/19/24 10:09 Height 5 ft 1 in Weight 163 lb 9.328 oz BMI 30.9 BP 160/80 H Blood Pressure Location Lt brachial Position Sitting Pulse 70 Pulse Source Pulse Oximeter Intake Visit Reasons: 3-4m follow up Mixer Wet Pour Required: No Senior Assistant Manager: Senior Assistant Manager Present Allergies egg [Egg] Allergy (Mild, Verified 07/19/24 10:11) SWELLING OF FACE, ITCHY eggplant [EGGPLANT] Allergy (Mild, Verified 07/19/24 10:11) PUFFY FACE, ITCHY milk [MILK] Allergy (Mild, Verified 07/19/24 10:11) SWELLING OF FACE, ITCHY tomato [Tomato] Allergy (Mild, Verified 07/19/24 10:11) SWELLING avocado [AVOCADO] Allergy (Unknown, Verified 07/19/24 10:11) SWEELING, ITCHY nut - unspecified [nut] Allergy (Unknown, Verified 07/19/24 10:11) SWELLING OF FACE,ITCHY Seafood Allergy (Unknown, Uncoded 07/19/24 10:11) SWELLING HPI HPI 3-4m follow up: Details: Miladis is a 74-year-old female with past medical history hypertension, paroxysmal atrial fibrillation who presents for follow-up. Today she reports that she has been feeling very well since her last visit in April. She has not been noticing any heart palpitations. No chest discomfort at rest or with activity. No shortness of breath, PND, orthopnea or edema. No bleeding issues reported. She reports Taking all meds as directed. She is not interested in more medications or in cardioversion. She would consider ablation. Daughter is present. She is assisting with Setswana translation at their request. [facility] Medical History (Updated 06/20/24 @ 11:35 by Elijah Bowers MD) Achilles tendinitis, left leg Paroxysmal atrial fibrillation Afib Hypertension Surgical History History of colonoscopy (~06/15/13) History of sinus surgery Family History Father No problems noted. Mother No problems noted. Sister Breast cancer Skin cancer Social History Housing: House Alcohol intake: never Patient Tobacco Use Status: Never used Tobacco e-Cigarette/Vaping Use: Never Used Second Hand Smoke Exposure: No service: No Current occupational status: retired Cognitive needs: No Hearing needs: No Vision needs: No Review of Systems ENT Reports dizziness Card Denies chest pain, Denies chest pain at rest, Denies chest pain with activity, Denies rapid heart rate, Denies pedal edema, Denies edema, Denies leg edema, Denies lightheadedness, Denies palpitations, Denies dyspnea, Denies dyspnea on exertion and Denies orthopnea Resp Denies cough, Denies dyspnea and Denies dyspnea on exertion GI Denies hematochezia and Denies change in stool character Musc Denies abnormal gait, Reports limited range of motion, Reports muscle cramps, Denies muscle weakness, Denies numbness, Denies radiating pain into limb, Denies stiffness and Denies tingling Neuro Denies abnormal gait, Reports dizziness, Denies numbness and Denies tingling Endo Denies palpitations Physical Exam Vital Signs: Last Vital Signs Pulse 70 07/19/24 10:09 BP 160/80 H 07/19/24 10:09 BMI result Body Mass Index 30.9 Assessment & Plan Assessment & Plan (1) Paroxysmal atrial fibrillation: Code(s): I48.0 - Paroxysmal atrial fibrillation Category: Medical Plan: History of paroxysmal atrial fibrillation, with cardioversion in the past, 2020. More recently had recurrently palpitations and Holter monitor done 10/10/2023 for 2-1/2 days showing atrial fibrillation, average rate 80. Last echo done 03/23/2023 showing EF 56%, moderate biatrial enlargement, mild calcification of the aortic valve, [id number] MR and TR. EKG done last visit showed atrial fibrillation, rate 81. She likely has persistent atrial fibrillation and declines further medications or cardioversion. She will consider atrial fibrillation ablation. Will refer to [facility] EP to see if she is candidate. Continue Metoprolol for heart rate control. Continue Eliquis for anticoagulation Cardiology follow-up 3-4 months, sooner if needed. (2) Hypertension: Code(s): I10 - Essential (primary) hypertension Category: Medical Plan: BP goal < 130/80. Blood pressure elevated initially this visit, Recheck done still elevated but improved at 148/78. Reviewed low-salt diet. No med changes at this time. Will recheck blood pressure at next visit. Plan Time spent on chart review, documentation, interview and assessment Orders: Referrals Cardiac Electrophysiology Referral I48.0 - Paroxysmal atrial fibrillation Coding Level of Care Code Est Pt Level 3 (19153) Complex EM visit Add On G2211 Diagnoses Paroxysmal atrial fibrillation I48.0 Hypertension I10 Time Spent (min) 24
[2024-07-19 10:09] VITALS: BP 160/80; PULSE 70; BMI 30.9
== END 2024-07-19 10:41 | disposition home or self-care (01) ==
PROVIDERS: PCP Internal Medicine; Visit Provider Nurse Practitioner Family
DX: I48.0 Paroxysmal atrial fibrillation (principal); I10 Essential (primary) hypertension
CPT/HCPCS: 99213; G2211

== ENCOUNTER → 2024-07-19 09:34 | Outpatient (BNVA) | payer MEDICARE, SELFPAY | PROVIDERS: PCP Internal Medicine; Visit Provider Nurse Practitioner Family | DX: I48.0 Paroxysmal atrial fibrillation (principal); I10 Essential (primary) hypertension | CPT/HCPCS: 99212 ==

== ENCOUNTER 2024-08-15 08:25 | Outpatient (REF) | payer MEDICARE, SELFPAY ==
--- OUTSIDE RECORDS SUMMARY | 2024-08-15 08:36 | XMS_ITS | Clinical Summary ---
Author Organization [address] [facility] Address [address] [place] [address] Phone Care Team Providers Care Citrus Picker Name Role Phone Elijah Bowers MD Primary Care Provider [phone]- [phone] Allergies No known active allergies Medications metoprolol succinate (TOPROL-XL) 50 mg 24 hr tablet Take 1 tablet (50 mg total) by mouth 1 (one) time each day. 06/03/2024 Active valACYclovir (VALTREX) 1 gram tablet Take 1 tablet (1,000 mg total) by mouth. 01/23/2024 Active Encounters Date Type Department Care Team Description 08/08/2024 11:00 AM EDT Consult Orthopedics - [address] [phone] Toan Dubon PA Achilles tendinitis, left leg 08/08/2024 10:30 AM EDT - 08/08/2024 11:59 PM EDT Hospital Encounter XRAY - [address] [phone] Achilles tendon pain Discharge Disposition: Home or Self Care from Last 3 Months Social History Tobacco Use Types Packs/Day Years Used Date Smoking Tobacco: Never Smokeless Tobacco: Never Tobacco Cessation:Counseling Given: Not Answered Alcohol Use Standard Drinks/Week Comments Never 0 (1 standard drink = 0.6 oz pur e alcohol) Comments No Sex and Gender Information Value Date Recorded Sex Assigned at Not on file Legal Sex Female 8:25 AM EST Gender Identity Not on file Sexual Orientation Not on file Obstetrics History Last Filed Vital Signs Vital Sign Reading Time Taken Comments Blood Pressure 140/72 08/08/2024 10:45 AM EDT Pulse 80 08/08/2024 10:45 AM EDT Temperature - - Respiratory Rate 14 08/08/2024 10:45 AM EDT Oxygen Saturation - - Inhaled Oxygen Concentration - - Weight 74 kg (163 lb 3.2 oz) 08/08/2024 10:45 AM EDT Height - - Body Mass Index - - Plan of Treatment Upcoming Encounters Date Type Department Care Team (Late st Contact Info) Description 08/24/2024 9:00 AM EDT Evaluation Outpatient Rehabilitation - [address] [phone] Etienne Ziegler, MARJORIE 10/17/2024 9:30 AM EDT Office Visit Orthopedics - [address] [phone] Toan Dubon PA [address] [place], [place] Health Maintenance Due Date Last Done Comments DTaP,Tdap,and Td Vaccines (1 - Tdap) 1968 Zoster Vaccines (1 of 2) 1999 Pneumococcal Vaccine: 50+ Years (2 of 2 - PCV) 05/26/2016 05/27/2015 COVID-19 Vaccine (3 - 2023-2 5 season) 2023 04/30/2020, 04/09/2020 RSV Immunization Adult Patients (1 - 1-dose 75+ series) 2024 Colorectal Cancer Screening: Colonoscopy 04/23/2024 Depression Screening 04/23/2024 Falls Risk Assessment 04/23/2024 Hepatitis C Screening 04/23/2024 Medicare Annual Wellness Visit 04/23/2024 Osteoporosis Screening (Bone Density Screening) 04/23/2024 Social Influencers of Health Screening 04/23/2024 Influenza Vaccine (Season Ended) 2024 HIB Vaccines Aged Out No longer eligi ble based on patient's age to complete this topic HPV Vaccines Aged Out No longer eligi ble based on patient's age to complete this topic Hepatitis A Vaccines Aged Out No long er eligible based on patient's age to complete this topic Hepatitis B Vaccines Aged Out No long er eligible based on patient's age to complete this topic IPV Vaccines Aged Out No longer eligi ble based on patient's age to complete this topic MMR Vaccines Aged Out No longer eligi ble based on patient's age to complete this topic Meningococcal ACWY Vaccine Aged Out N o longer eligible based on patient's age to complete this topic Meningococcal B Vaccine Aged Out No l onger eligible based on patient's age to complete this topic RSV Immunization Patients Under 20 months Aged Out No longer eligible b ased on patient's age to complete this topic Varicella Vaccines Aged Out No longer eligible based on patient's age to complete this topic Procedures Procedure Name Priority Date/Time Associated Diagnosis Comments XR ANKLE 3+ VIEWS LEFT Routine 08/08/2024 10:43 AM EDT Achilles tendon pain from Last 3 Months Results * XR Ankle 3+ Views Left (08/08/2024 10:43 AM EDT) Anatomical Region Laterality Modality Lower Extremities, Ankle Left Radiogr aphic Imaging 08/08/2024 4:03 PM EDT Narrative 08/08/2024 4:04 PM EDT Left ankle, 3 views. History Achilles tendinitis. No prior studies are available for comparison. There is no evidence of fractures or dislocations. There is medium-size posterior calcaneal spur and some thickening of the distal Achilles tendon. There are atherosclerotic calcifications in the distal leg. CONCLUSIONS: Posterior calcaneal spur and some thickening of the distal Achilles tendon. No fractures or dislocations. -------- FINAL REPORT -------- Dictated By: Nai Ivy Dictated Date: 08/08/2024 16:03 ET Assigned Physician: Nai Ivy Reviewed and Electronically Signed By: Nai Ivy Signed Date: 08/08/2024 16:04 ET Workstation ID: [id number] Transcribed By: Self Edit Transcribed Date: 08/08/2024 16:03 ET Procedure Note Nai Ivy MD - 08/08/2024 Left ankle, 3 views. History Achilles tendinitis. No prior studies are available for comparison. There is no evidence of fractures or dislocations. There is medium-sizeposterior calcaneal spur and some thickening of the distal Achillestendon. There are atherosclerotic calcifications in the distal leg. CONCLUSIONS: Posterior calcaneal spur and some thickening of the distalAchilles tendon. No fractures or dislocations. -------- FINAL REPORT -------- Dictated By: Nai Ivy Dictated Date: 08/08/2024 16:03 ET Assigned Physician: Nai Ivy Reviewed and Electronically Signed By: Nai Ivy Signed Date: 08/08/2024 16:04 ET Workstation ID: [id number] Transcribed By: Self Edit Transcribed Date: 08/08/2024 16:03 ET Toan TYLER IMG XR PROCEDURES Final Result from Last 3 Months Insurance MEDICARE [facility] Care Teams Citrus Picker Relationship Specialty Start Date End Date Elijah Bowers MD [address] [place] [address] PCP - General Internal Medicine 07/10/24
== END 2024-08-15 08:26 | disposition home or self-care (01) ==
LOC: HO.MAMMO 08:25
PROVIDERS: PCP Internal Medicine; Visit Provider Internal Medicine
DX: Z12.31 Encounter for screening mammogram for malignant neoplasm of breast (principal)
CPT/HCPCS: 77063; 77067

== ENCOUNTER → 2024-08-15 08:45 | Outpatient (BNV) | payer MEDICARE, SELFPAY | PROVIDERS: PCP Internal Medicine; Visit Provider Internal Medicine | DX: Z12.31 Encounter for screening mammogram for malignant neoplasm of breast (principal) | CPT/HCPCS: 77063; 77067 ==

== ENCOUNTER 2025-01-07 07:51 | Outpatient (REF) | payer MEDICARE, SELFPAY ==
--- OUTSIDE RECORDS SUMMARY | 2025-01-07 07:54 | XMS_ITS | Clinical Summary ---
Author Organization 175 [facility] Address [address] [place] [address] Phone Care Team Providers Care Coloring Checker Name Role Phone Elijah Bowers MD Primary Care Provider [phone]- [phone] Allergies No known active allergies Medications metoprolol succinate (TOPROL-XL) 50 mg 24 hr tablet Take 1 tablet (50 mg total) by mouth 1 (one) time each day. 06/03/2024 Active valACYclovir (VALTREX) 1 gram tablet Take 1 tablet (1,000 mg total) by mouth. 01/23/2024 Active Active Problems No known active problems Encounters Date Type Department Care Team Description 11/07/2024 9:30 AM EDT Office Visit Orthopedics [address] [phone] Toan Dubon PA Achilles tendinitis, left leg (Primary Dx) from Last 3 Months Social History Tobacco [...] AM EDT Temperature - - Respiratory Rate 16 11/07/2024 9:12 AM EDT Oxygen Saturation - - Inhaled Oxygen Concentration - - Weight 74.4 kg (164 lb) 11/07/2024 9:12 AM EDT Height 160 cm (5' 3 ) 11/07/2024 9:12 AM EDT Body Mass Index 29.05 11/07/2024 9:12 AM EDT Plan of Treatment Health Maintenance Due Date Last Done Comments Colorectal Cancer Screening: Colonoscopy 1949 DTaP,Tdap,and Td Vaccines (1 - Tdap) 1968 Zoster Vaccines (1 of 2) 1999 Pneumococcal Vaccine: 50+ Years (2 of 2 - PCV) 05/26/2016 05/27/2015 Depression Screening 03/07/2024 RSV Immunization Adult Patients (1 - 1-dose 75+ series) 2024 Falls Risk Assessment 04/23/2024 Hepatitis C Screening 04/23/2024 Medicare Annual Wellness Visit 04/23/2024 Osteoporosis Screening (Bone Density Screening) 04/23/2024 Social Influencers of Health Screening 04/23/2024 COVID-19 Vaccine (3 - 2024-2 6 season) 2024 04/30/2020, 04/09/2020 Influenza Vaccine (#1) 2024 HIB Vaccines Aged Out No longer [...] on patient's age to complete this topic Insurance MEDICARE [facility] Care Teams Coloring Checker Relationship Specialty Start Date End Date Elijah Bowers MD [address] [place] [address] PCP - General Internal Medicine 08/31/24
[2025-01-07 08:21] LABS: Hematocrit 40.6 % (37.0-47.0); Hemoglobin 13.0 g/dl (12.0-16.0); Mean Corpuscular HGB Conc 32.0 g/dl (31.0-35.0); Mean Corpuscular Hemoglobin 27.8 pg (27.0-33.0); Mean Corpuscular Volume 86.9 fL (80.0-98.0); NRBC Abs Auto 0.000 X10*3/uL (0.0-0.012); NRBC Pct Auto 0.0 /100WBC (0.0-0.2); Platelet Count 252 X10*3/uL (160-400); Red Blood Count 4.67 X10*6/uL (4.20-5.50); White Blood Count 6.3 X10*3/uL (4.8-10.8)
[2025-01-07 09:00] LABS: Alanine Aminotransferase 14 U/L (0-31); Albumin Level 4.1 g/dL (3.5-5.0); Alkaline Phosphatase 88 U/L (39-117); Anion Gap 11 (12-20); Aspartate Amino Transferase 24 U/L (5-31); Blood Urea Nitrogen 27 mg/dL (9-16); Calcium 9.4 mg/dL (8.4-10.2); Carbon Dioxide 26 mmol/L (22-29); Chloride 107 mmol/L (96-108); Cholesterol 153 mg/dL (<200); Estimated Glomerular Filt Rate > 60; HDL Cholesterol 47 mg/dL (>40); Potassium 4.1 mmol/L (3.3-5.1); Sodium 140 mmol/L (135-145); Total Protein 7.3 g/dL (6.5-8.0); Triglycerides 56 mg/dL (<150)
== END 2025-01-07 07:52 | disposition home or self-care (01) ==
LOC: HO.LAB 07:51
PROVIDERS: Visit Provider Physician Assistant Medical
DX: Z00.00 Encounter for general adult medical examination without abnormal findings (principal); I10 Essential (primary) hypertension; Z13.220 Encounter for screening for lipoid disorders; Z79.899 Other long term (current) drug therapy
CPT/HCPCS: 36415; 80053; 80061; 82306; 84443; 85027